=== PATIENT | female | born 1960 | race Two or more races ===

== ENCOUNTER 2021-10-06 14:02 | Outpatient (REF) | payer MEDICAID, SELFPAY ==
--- NOTE | ~2021-10-06 | MM_ITS ---
EXAMINATION: MM SCREENING DIGITAL BREAST TOMOSYNTHESIS, BILATERAL CLINICAL INFORMATION: Screening. Asymptomatic. The lifetime risk of breast cancer based on the Tyrer-Cuzick Model is 8.7%. COMPARISON: Mammography: January 16, 2019 and studies dating back to 04/30/2011 TECHNIQUE: Digital breast tomosynthesis is performed in both the craniocaudal and mediolateral oblique views along with computer-aided detection (CAD). Synthesized 2D images are generated from the tomosynthesis. FINDINGS: There are scattered areas of fibroglandular density (ACR BI-RADS breast composition Category b). There is stable parenchymal pattern of the right breast. Within the deep lateral aspect of the left breast on craniocaudal view only, there is a question of region of architectural distortion for which spot compression view is recommended. MM/MM tomosynthesis screening BI IMPRESSION: Question region of distortion, deep lateral aspect left breast with spot compression view. ASSESSMENT: BI-RADS 0: Incomplete - Need Additional Imaging Evaluation RECOMMENDATION: 1. Additional views of the left breast. 2. Targeted ultrasound if warranted after review of the additional views. 3. Radiology department staff will contact the patient for additional imaging.
== END 2021-10-06 14:03 | disposition home or self-care (01) ==
LOC: HO.MAMMO 14:02
PROVIDERS: PCP General Practice; Visit Provider General Practice
DX: Z12.31 Encounter for screening mammogram for malignant neoplasm of breast (principal)
CPT/HCPCS: 77063; 77067

== ENCOUNTER 2021-10-22 14:56 | Outpatient (REF) | payer MEDICAID, SELFPAY ==
--- NOTE | ~2021-10-22 | MM_ITS ---
EXAMINATION: MM DIAGNOSTIC DIGITAL BREAST TOMOSYNTHESIS, LEFT CLINICAL INFORMATION: Recall from screening for question of subtle architectural changes posterior left breast limited to CC view. COMPARISON: Mammography: 10/06/2021, 01/16/2019, 12/26/2017 TECHNIQUE: Digital breast tomosynthesis is performed. 2D images are generated from the tomosynthesis. The following views are obtained: Spot CC, rolled CC x2, standard ML. FINDINGS: There are scattered areas of fibroglandular density (ACR BI-RADS breast composition Category b). The additional views show no architectural abnormality. There is no mass or developing density. No significant changes from prior studies. Results are discussed with the patient at time of visit. MM/MM tomosynthesis added views L IMPRESSION: Additional views show no architectural abnormality or interval changes from prior exams. ASSESSMENT: BI-RADS 1: Negative RECOMMENDATION: Routine annual mammography screening. This patient's information was entered into a reminder system with a target due date for their next mammogram.
== END 2021-10-22 14:57 | disposition home or self-care (01) ==
LOC: HO.MAMMO 14:56
PROVIDERS: PCP General Practice; Visit Provider General Practice
DX: N64.89 Other specified disorders of breast (principal)
CPT/HCPCS: 77061; 77065

== ENCOUNTER 2022-01-27 12:14 | Outpatient (REF) | payer MEDICAID, SELFPAY ==
--- NOTE | ~2022-01-27 | XR_ITS ---
EXAMINATION: XR WRIST, LEFT CLINICAL INFORMATION: Effusion left wrist. COMPARISON: Radiographs left hand 01/16/2019 TECHNIQUE: Left wrist is imaged in 4 views. FINDINGS: Normal bony mineralization. No fracture, dislocation, or destructive process. Ulnar variance is neutral. The carpus shows no joint narrowing or erosive change or chondrocalcinosis. XR/XR wrist LT min 3V IMPRESSION: No fracture, destructive process, or arthropathy.
--- NOTE | ~2022-01-27 | XR_ITS ---
EXAMINATION: XR LUMBOSACRAL SPINE CLINICAL INFORMATION: Low back pain COMPARISON: CT abdomen and pelvis 04/11/2016 TECHNIQUE: 5 views of the lumbosacral spine. FINDINGS: There is transitional vertebrae at S1 with bilateral lumbarization. The lumbar vertebral bodies are normal in height and there is normal lumbar lordosis. No vertebral compression, spondylolisthesis, destructive process. There are multilevel degenerative disc changes with variable disc narrowing and endplate sclerosis and bulky bridging osteophytes. There is facet degeneration L4-S1. The SI joints are unremarkable. Gastric lap band again seen. XR/XR lumbar spine 2-3V IMPRESSION: -Transitional vertebrae at S1 with bilateral lumbarization. -Multilevel degenerative disc changes with small anterior and bulky lateral bridging osteophytes. -No vertebral compression, spondylolisthesis, destructive process.
== END 2022-01-27 12:15 | disposition home or self-care (01) ==
LOC: HO.XRAY 12:14
PROVIDERS: PCP General Practice; Visit Provider General Practice
DX: M54.50 Low back pain, unspecified (principal); M25.432 Effusion, left wrist
CPT/HCPCS: 72100; 73110

== ENCOUNTER 2022-02-10 15:11 | Outpatient (REF) | payer MEDICAID, SELFPAY ==
--- NOTE | ~2022-02-10 | XR_ITS ---
EXAMINATION: XR CHEST CLINICAL INFORMATION: Obesity COMPARISON: Previous chest x-rays most recent February 2018 TECHNIQUE: 2 views of the chest were obtained. FINDINGS: The cardiac silhouette is upper normal in size. There is a new left subclavian dual chamber pacemaker. The lung volumes are low. There are increased central lung markings probably related to low lung volumes. The lungs are otherwise clear. There is slight elevation of the right hemidiaphragm. There is no pleural effusion or pneumothorax. Bony structures are unremarkable. There is a gastric lap band. XR/XR chest 2V IMPRESSION: New left subclavian dual chamber pacemaker. Upper normal-size cardiac silhouette. Low lung volumes and elevated right hemidiaphragm.
[2022-02-10 15:46] LABS: VBG pCO2 58 mmHg; VBG pH 7.42 (7.32-7.43)
[2022-02-10 15:47] LABS: VBG Base Excess 12.3 mmol/L; VBG HCO3 38 mmol/L (22-26); VBG pO2 30 mmHg
[2022-02-10 15:48] LABS: Venous Blood Gas Refer to POC result
== END 2022-02-10 15:12 | disposition home or self-care (01) ==
LOC: HO.XRAY 15:11
PROVIDERS: PCP General Practice; Visit Provider Internal Medicine
DX: G47.33 Obstructive sleep apnea (adult) (pediatric) (principal); G47.34 Idiopathic sleep related nonobstructive alveolar hypoventilation; E66.01 Morbid (severe) obesity due to excess calories
CPT/HCPCS: 36415; 71046; 82803; 99202

== ENCOUNTER → 2022-03-03 09:11 | Outpatient (BNVA) | payer MEDICAID, SELFPAY | PROVIDERS: PCP General Practice; Visit Provider Internal Medicine | DX: I45.2 Bifascicular block (principal); I50.32 Chronic diastolic (congestive) heart failure; G47.33 Obstructive sleep apnea (adult) (pediatric); Z95.0 Presence of cardiac pacemaker | CPT/HCPCS: 93005; 99212 ==

== ENCOUNTER → 2022-04-01 09:41 | Outpatient (REF) | payer MEDICAID, SELFPAY ==
--- NOTE | 2022-04-01 09:46 | CA_ITS ---
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 Technically limited study despite use of contrast agent 2. Normal LV systolic function with mild LVH with impaired relaxation filling pattern with elevated filling pressures 3. Limited visualization of cardiac valves with normal cardiac valvular Doppler 4. Trivial pericardial effusion Findings Procedure Information Contrast agent, definity, is being given per protocol without apparent complications. Left Ventricle Normal left ventricular size and systolic function. There is mildly increased left ventricular wall thickness. The visually estimated ejection fraction is between 60-65%. Regional wall motion abnormalities can not be excluded due to suboptimal endocardial definition. Spectral Doppler is indicative of an impaired relaxation filling pattern. Elevated filling pressures. E/E prime ratio is >15, consistent with elevated filling pressures. Right Ventricle The right ventricle was not well visualized. Atria The left atrium was not well visualized. Interatrial shunt cannot be excluded. The right atrium was not well visualized. Aortic Valve The aortic valve was not well visualized. There is no aortic valve stenosis. There is no aortic valve regurgitation. Mitral Valve The mitral valve was not well visualized. There is no mitral valve regurgitation. There is no mitral valve stenosis. Pulmonic Valve The pulmonic valve was not well visualized. Tricuspid Valve Tricuspid regurgitation envelope is inadequate for calculation of right ventricular systolic pressure. Great Vessels All visible segments of the aorta are normal in size. The pulmonary artery was not well visualized. Venous The inferior vena cava was not well visualized. Pericardium/Pleural There is a trivial pericardial effusion. Prior Study Comparison no prior study in the last 5 years for comparison Measurements 2D Linear Measurements IVSd: 1.10 0.6-0.9/0.6-1.0 cm LVIDd: 5.06 3.9-5.3/4.2-5.9 cm LVIDd Index: 2.17 2.4-3.2/2.2-3.1 cm/m2 LVIDs: 3.52 2.0-3.6 cm LVPWd: 1.26 0.7-1.1 cm LA Diam: 3.30 2.7-3.8/3.0-4.0 cm LAIDs Index: 1.42 1.5-2.3 cm/m2 LV Mass: 290.12 67-162/88-224 g LV Mass Index: 124.52 43-95/49-115 g/m2 LVOT Diam: 2.00 3.0+(-)1.3 cm 2D Systolic Function EF 4C: 60.30 >55% EF 2C: 56.30 >55% EF BiP: 58.70 >55% Mitral Valve MV Pk E: 1.14 MV PK A: 1.26 MV Decel Time: 214.00 E/A: 0.90 E'Lateral: 8.16 E'Medial: 5.11 E/E' Med: 22.30 E/E' Lat: 14.00 PHT: 63.00 MVA PHT: 3.49 Decel [place]: 5.34 Aortic Valve AoV Pk Quinten: 1.66 AoV Mn Quinten: 1.26 AoV VTI: 0.35 AoV Pk Grad: 11.00 Aov Mn Grad: 7.00 CONNIE Cont.VTI: 1.75 LVOT LVOT Pk Quinten: 0.97 LVOT Mn Quinten: 0.68 LVOT VTI: 0.20 LVOT Pk Grad: 4.00 LVOT Mn Grad: 2.00 LVOT Diam: 2.00 LVOT Area: 3.14 Diastolic Function MV Pk E: 1.14 MV Pk A: 1.26 E/A: 0.90 E'Medial: 5.11 E/E' Med: 22.30 E' Laterial: 8.16 E/E' Lat: 14.00 Right Ventricle TAPSE (mm): 21.40 TVS' Quinten: 12.10 Tricuspid Valve TR Pk Quinten: 2.34 TR Pk Grad: 22.00 Great Vessels Aorta Sinus of Valsalva: 2.90 2.0-3.5 cm Ao Asc: 3.40 2.1-3.4 cm Pulmonary Valve PV Pk Quinten: 0.98 Peak PV Grad: 4.00 Updated in Other Vendor System with Status of Final Ho Pizano MD electronically signed on 04/02/2022 3:09:10 PM with status of Final
== END ==
LOC: HO.CARD 09:41
PROVIDERS: PCP General Practice; Visit Provider Internal Medicine
DX: I50.32 Chronic diastolic (congestive) heart failure (principal)
CPT/HCPCS: 93306; Q9957

== ENCOUNTER 2022-04-12 10:01 | Outpatient (REF) | payer MEDICAID, SELFPAY ==
--- NOTE | 2022-04-12 17:25 | PFT_ITS ---
The patient was unable to complete pulmonary function test maneuvers despite multiple attempts. Pulmonary function test was aborted. IMPRESSION: Aborted pulmonary function test. MD BIRD Jaimes/AMI / [id number]
== END 2022-04-12 10:02 | disposition home or self-care (01) ==
LOC: HO.RESP 10:01
PROVIDERS: PCP General Practice; Visit Provider Internal Medicine
DX: G47.33 Obstructive sleep apnea (adult) (pediatric) (principal); E66.01 Morbid (severe) obesity due to excess calories; Z95.0 Presence of cardiac pacemaker
CPT/HCPCS: 99212

== ENCOUNTER → 2022-04-19 12:29 | Outpatient (BNVA) | payer MEDICAID, SELFPAY | PROVIDERS: PCP General Practice; Visit Provider Internal Medicine | DX: I50.32 Chronic diastolic (congestive) heart failure (principal); G47.33 Obstructive sleep apnea (adult) (pediatric); E11.8 Type 2 diabetes mellitus with unspecified complications; E66.01 Morbid (severe) obesity due to excess calories; Z68.42 Body mass index [BMI] 45.0-49.9, adult; Z79.4 Long term (current) use of insulin; Z45.018 Encounter for adjustment and management of other part of cardiac pacemaker | CPT/HCPCS: 93280; 99212 ==

== ENCOUNTER 2022-08-20 10:18 | Outpatient (REF) | payer MEDICAID, SELFPAY ==
--- NOTE | ~2022-08-20 | XR_ITS ---
EXAMINATION: XR LUMBOSACRAL SPINE CLINICAL INFORMATION: Low back pain COMPARISON: X-ray lumbosacral spine January 2022 TECHNIQUE: Three views of the lumbosacral spine. FINDINGS: There is a transitional lumbosacral junction with 6 lumbar-type vertebral bodies noted as before. Multilevel degenerative disc changes noted with endplate osteophytes noted at all levels. There is no fracture or bone lesion. There is varying degrees of mild disc space narrowing, unchanged compared to prior. Arterial calcification noted throughout. XR/XR lumbar spine 2-3V IMPRESSION: Mild multilevel spondylosis of lumbosacral spine unchanged compared with prior x-ray January 2022. As noted previously, there is a transitional lumbosacral junction. If any spine intervention is considered, this needs to be considered when determining specific levels of intervention.
== END 2022-08-20 10:19 | disposition home or self-care (01) ==
LOC: HO.XRAY 10:18
PROVIDERS: PCP General Practice; Visit Provider General Practice
DX: M54.50 Low back pain, unspecified (principal)
CPT/HCPCS: 72100

== ENCOUNTER → 2022-09-01 13:58 | Outpatient (BNVA) | payer MEDICAID, SELFPAY | PROVIDERS: PCP General Practice; Visit Provider Internal Medicine | DX: E66.2 Morbid (severe) obesity with alveolar hypoventilation (principal); I11.0 Hypertensive heart disease with heart failure; I50.32 Chronic diastolic (congestive) heart failure; Z68.42 Body mass index [BMI] 45.0-49.9, adult; Z98.84 Bariatric surgery status; Z95.0 Presence of cardiac pacemaker; Z99.81 Dependence on supplemental oxygen | CPT/HCPCS: 99212 ==

== ENCOUNTER → 2022-10-06 10:02 | Outpatient (BNVA) | payer MEDICAID, SELFPAY | PROVIDERS: PCP General Practice; Visit Provider Anesthesiology | DX: M47.816 Spondylosis without myelopathy or radiculopathy, lumbar region (principal); E11.8 Type 2 diabetes mellitus with unspecified complications; E66.01 Morbid (severe) obesity due to excess calories; Z68.42 Body mass index [BMI] 45.0-49.9, adult | CPT/HCPCS: 99202 ==

== ENCOUNTER 2022-11-05 11:10 | Outpatient (REF) | payer MEDICAID, SELFPAY ==
--- NOTE | ~2022-11-05 | MM_ITS ---
EXAMINATION: MM SCREENING DIGITAL BREAST TOMOSYNTHESIS, BILATERAL CLINICAL INFORMATION: Screening. Asymptomatic. The lifetime risk of breast cancer based on the Tyrer-Cuzick Model is 6%. COMPARISON: Mammography: 10/22/2021, 10/06/2021, 01/16/2019, 12/26/2017 TECHNIQUE: Digital breast tomosynthesis is performed in both the craniocaudal and mediolateral oblique views along with computer-aided detection (CAD). Synthesized 2D images are generated from the tomosynthesis. Additional bilateral MLO views are provided. FINDINGS: There are scattered areas of fibroglandular density (ACR BI-RADS breast composition Category b). There are no significant masses, abnormal calcifications, or other abnormalities. No developing density or architectural abnormality. There are scattered bilateral round and rim calcifications. Pacemaker generator overlies and partly obscures posterior left axilla on MLO view. MM/MM tomosynthesis screening BI IMPRESSION: No mammographic evidence of malignancy. ASSESSMENT: BI-RADS 2: Benign RECOMMENDATION: Routine annual mammography screening. This patient's information was entered into a reminder system with a target due date for their next mammogram.
== END 2022-11-05 11:11 | disposition home or self-care (01) ==
LOC: HO.MAMMO 11:10
PROVIDERS: PCP General Practice; Visit Provider General Practice
DX: Z12.31 Encounter for screening mammogram for malignant neoplasm of breast (principal)
CPT/HCPCS: 77063; 77067

== ENCOUNTER → 2023-03-02 23:59 | Outpatient (BNV) | payer MEDICAID, SELFPAY ==
--- NOTE | 2023-03-06 10:40 | MHC.OFFVIS ---
Intake Intake Visit Reasons: Remote Device Check- [facility] Allergies No Known Allergies [No Known Allergies*] Allergy (Verified 10/06/22 11:01) [facility] Medical History (Updated 10/06/22 @ 11:42 by Sam Duggan MD) Anemia Chronic heart failure with preserved ejection fraction COVID-19 Essential hypertension Gout Hepatitis C Hypothyroidism Hypoventilation associated with obesity Morbid obesity Nocturnal hypoxia Nonimmune to hepatitis B virus AMMY (obstructive sleep apnea) Schizophrenia Type 2 diabetes mellitus with unspecified complications Surgical History History of adjustable gastric banding Status post cardiac pacemaker procedure Family History Mother Diabetes Hypertension Father Hyperlipidemia Social History Alcohol intake: never Patient Tobacco Use Status: Never used Tobacco Office Procedures Cardiac Device Check Cardiac Device Check Details: Date of service- 03/02/2023 ; Battery life >7 years; normal lead parameters; AP <1 %; 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 Overall normal device function. [id number] Cardiac Device Interrogation, pacemaker Procedure code (CPT) selection complete Assessment & Plan Assessment & Plan (1) Bifascicular bundle branch block: Code(s): I45.2 - Bifascicular block (2) Chronic heart failure with preserved ejection fraction: Code(s): I50.32 - Chronic diastolic (congestive) heart failure Coding Level of Care Code Procedure Only Diagnoses Bifascicular bundle branch block I45.2 Chronic heart failure with preserved ejection fraction I50.32 CPT Codes Cardiac Device Check - Cardiac Device 12: [id number] Cardiac Device Interrogation, pacemaker ([id number])
== END ==
PROVIDERS: PCP General Practice; Visit Provider Internal Medicine
DX: I45.2 Bifascicular block (principal); Z95.0 Presence of cardiac pacemaker; I50.32 Chronic diastolic (congestive) heart failure
CPT/HCPCS: 93294

== ENCOUNTER 2023-04-06 10:22 | Outpatient (AMB) | payer MEDICAID, SELFPAY ==
[2023-04-06 10:45] VITALS: BP 120/62; PULSE 99; O2SAT 95; BMI 45.3
--- NOTE | 2023-04-06 10:45 | MHC.OFFVIS ---
Intake Vital Signs 04/06/23 10:45 Height 5 ft 5 in Weight 272 lb BMI 45.3 BP 120/62 Blood Pressure Location Lt brachial Position Sitting Pulse 99 Pulse Source Pulse Oximeter Pulse Oximetry (%) 95 Oxygen Delivery Method Room Air Intake Visit Reasons: COPD Intake Note: pt is here for follow up and states she feels good, she is using oxygen t night and is asking if she should continue? Outside [employer] Sales Required: Yes Outside B2[employer] Sales Name: melissa Allergies No Known Allergies [No Known Allergies*] Allergy (Verified 04/06/23 11:04) Medication List - Last Reconciled 04/06/23 by Ulisses Noble MD aspirin 1 tab PO DAILY atorvastatin 40 mg PO BEDTIME blood sugar diagnostic (FreeStyle Lite Strips) As directed cholecalciferol (vitamin D3) 25 mcg PO DAILY doxepin 10 mg PO DAILY dulaglutide (Trulicity) 0.75 mg subcut QWEEK haloperidol decanoate (Haldol Decanoate) 50 mg IM Q4W hydroxyzine HCl mg IM insulin glargine (Lantus Solostar U-100 Insulin) units subcut insulin lispro (Humalog KwikPen (U-100) Insulin) subcut insulin lispro subcut lancets (Pure Comfort Safety Lancets) As directed levothyroxine 50 mcg PO DAILY lisinopril 2.5 mg PO DAILY lorazepam (Ativan) 1 mg PO BID PRN metformin ER 1,000 mg PO BID pantoprazole 20 mg PO DAILY quetiapine (Seroquel) 100 mg PO DAILY sennosides-docusate sodium 8.6-50 mg (Senna Plus) 1 tab PO BID Do you need a note to return to daycare/school/sports/work: No HPI COPD HPI Details 62 YEARS OLD VERY PLEASANT FEMALE WHO HAS MORBID OBESITY AND DIAGNOSIS OF OBSTRUCTIVE SLEEP APNEA/ HYPOVENTILATION SYNDROME, COMES FOR 6 MONTHS FOLLOW-UP. SHE COULD NOT USE CPAP, SO FOR TO OVERCOME NOCTURNAL HYPOXEMIA SHE USES O2 2 L/MINUTE. CLAIMS THAT SHE SLEEPS GOOD, AND DENIES ANY DAYTIME SLEEPINESS OR CONFUSIONAL ATTACKS. SHE IS TRYING TO LOSE WEIGHT SLOWLY. DENIES ANY COUGH WHEEZING OR SHORTNESS OF BREATH. SHE IS NOT ON ANY BRONCHODILATORS. SHE IS NONSMOKER. [facility] Medical History Hepatitis C Nocturnal hypoxia COVID-19 Gout Anemia Essential hypertension Type 2 diabetes mellitus with unspecified complications Nonimmune to hepatitis B virus Hypothyroidism Schizophrenia Chronic heart failure with preserved ejection fraction Hypoventilation associated with obesity AMMY (obstructive sleep apnea) Morbid obesity Surgical History Status post cardiac pacemaker procedure History of adjustable gastric banding Family History Mother Diabetes Hypertension Father Hyperlipidemia Social History Alcohol intake: never Patient Tobacco Use Status: Never used Tobacco Review of Systems Const All systems reviewed & are unremarkable except as noted in HPI and below Eyes Reports no additional complaints ENT Reports no additional complaints Card Denies chest pain, Denies irregular heart rhythm, Denies leg edema and Reports dyspnea on exertion (MILD) Resp Denies cough, Reports dyspnea on exertion (MILD) and Denies wheezing GI Reports no additional complaints Musc Reports no additional complaints Skin/Breast Reports system reviewed and no additional complaints, except as documented Neuro Reports no additional complaints Psych Reports anxiety Endo Reports other (BEING TREATED FOR DIABETES MELLITUS) Aller/Immun Denies wheezing Physical Exam Vital Signs: Last Vital Signs Pulse 99 04/06/23 10:45 BP 120/62 04/06/23 10:45 Pulse Ox 95 04/06/23 10:45 Oxygen Delivery Method Room Air 04/06/23 10:45 BMI result Body Mass Index 45.3 Const Other: Grossly obese with a round face. General: comfortable, no acute distress, alert and awake Orientation/consciousness: patient oriented x3 HEENT Other: Very narrow oropharynx, Mallampati class 4. Head: Yes normal to inspection General nose exam: No nasal polyps present and No nasal discharge present Face and sinus: Yes sinuses nontender Mouth: oropharynx normal Throat: Yes posterior oropharynx normal Eyes General: appearance normal, both eyes and all related structures Neck Neck: Yes normal visual inspection, Yes no lymphadenopathy, Yes trachea midline, Yes no JVD and Yes other (Neck circumference 18-1/2 inch) Thyroid: Thyroid normal Chest Chest palpation & inspection: normal inspection of the chest, normal palpation of entire chest wall and no tenderness Resp Other: PERCUSSION NOTE IS NOT PERCEPTIBLE DUE TO THICK CHEST WALL, BREATH SOUNDS ARE DISTANT ESPECIALLY OVER THE BASILAR AREAS, NO WHEEZES OR CREPITATIONS ARE HEARD. Cardio Palpation: normal PMI Rate: regular rate Rhythm: regular rhythm and other (Pacemaker battery in the left pectoral area) Heart sounds: no gallops and no murmurs GI Palpation (GI): Soft to palpation, nontender, No hepatosplenomegaly present, no masses and Other GI palpation findings present (Abdomen is grossly obese and protuberant) Auscultation: normal bowel sounds Back/Spine/Pelvis Thoracic/Lumbar Spine: thoracic and lumbar spine normal to inspection and thoraco-lumbar ROM limited Skin General skin exam: no rashes or lesions noted Neuro General: patient oriented x3, No gait normal (Non ambulatory), no focal motor deficits and other (Both lower extremities are weak and patient is non ambulatory) Cranial nerves: Yes CN's II-XII intact bilaterally Extrem General: Yes normal to inspection, Yes no calf tenderness, Yes edema (Both legs are tight with slight pitting edema) and Yes venous stasis dermatitis Psych Appearance: grossly normal Speech and movement: Normal speech and movement present Results Reviewed Results Reviewed: VENOUS BLOOD GAS STUDY. PH= 7.44 PCO2 49 PO2 27 THIS SHOWS ONLY VERY MILD DEGREE OFHYPERCARBIA ( SEC TO HYPOVENTILATION ) Assessment & Plan Assessment & Plan (1) Morbid obesity: Comment: BMI=46.4 She is of simple mind. Not able to follow instructions for diet or exercise. There is not much potential for any weight reduction, but this time she has lost about 8 LBs . Encouraged to keep on losing more weight. Code(s): E66.01 - Morbid (severe) obesity due to excess calories (2) AMMY (obstructive sleep apnea): Comment: Patient is known case of AMMY / Hypoventilation Syndrome ,but could not use the CPAP. She is on oxygen 2 L/minute during sleep. Code(s): G47.33 - Obstructive sleep apnea (adult) (pediatric) (3) Hypoventilation associated with obesity: Comment: CHRONIC OBESITY RELATED HYPOVENTILATION SYNDROME, ALONG WITH AMMY. SHE HAS CHRONIC HYPERCAPNIA AND HYPOXEMIA . LAST VENOUS BLOOD GAS SHOWED PCO2 58, AND PATTERN OF CHRONIC COMPENSATED RESPIRATORY FAILURE. VENOUS BG TEST REPEATED TODAY , SHOWS PCO 2 ONLY 49, WHICH IS DEFINITELY IMPROVED. . PATIENT ADVISED TO DO DEEP BREATHING EXERCISES, SHE IS EDUCATED TO DO DEEP BREATHING EXERCISES 10 EFFORTS EACH TIME AND 3 TIMES A DAY. Code(s): E66.2 - Morbid (severe) obesity with alveolar hypoventilation (4) Nocturnal hypoxia: Comment: PART OF UNTREATED OS/HYPOVENTILATION SYNDROME SHE HAS NOCTURNAL HYPOXEMIA. TREATED WITH O2 2 L/MINUTE AND SHE USES IT REGULARLY EVERY NIGHT. Code(s): G47.34 - Idiopathic sleep related nonobstructive alveolar hypoventilation Orders: Orders Venous Blood Gas Today E66.2 - Morbid (severe) obesity with alveolar hypoventilation, G47.33 - Obstructive sleep apnea (adult) (pediatric), G47.34 - Idiopathic sleep related nonobstructive alveolar hypoventilation Coding Level of Care Code Est Pt Level 4 (94828) Diagnoses Morbid obesity E66.01 AMMY (obstructive sleep apnea) G47.33 Hypoventilation associated with obesity E66.2 Nocturnal hypoxia G47.34
== END 2023-04-06 11:03 | disposition home or self-care (01) ==
PROVIDERS: PCP General Practice; Visit Provider Internal Medicine
DX: E66.2 Morbid (severe) obesity with alveolar hypoventilation (principal)
CPT/HCPCS: 99214

== ENCOUNTER 2023-04-06 10:22 | Outpatient (REF) | payer MEDICAID, SELFPAY ==
[2023-04-06 11:26] LABS: Venous Blood Gas Refer to POC result
[2023-04-06 11:28] LABS: VBG Base Excess 8.1 mmol/L; VBG HCO3 33 mmol/L (22-26); VBG pCO2 49 mmHg; VBG pH 7.44 (7.32-7.43); VBG pO2 27 mmHg
== END 2023-04-06 10:23 | disposition home or self-care (01) ==
LOC: HO.LAB 10:22
PROVIDERS: PCP General Practice; Visit Provider Internal Medicine
DX: J44.9 Chronic obstructive pulmonary disease, unspecified (principal); G47.33 Obstructive sleep apnea (adult) (pediatric); E66.2 Morbid (severe) obesity with alveolar hypoventilation; G47.34 Idiopathic sleep related nonobstructive alveolar hypoventilation; Z79.899 Other long term (current) drug therapy; Z79.4 Long term (current) use of insulin; Z99.81 Dependence on supplemental oxygen
CPT/HCPCS: 36415; 82803; 99212

== ENCOUNTER → 2023-06-01 23:59 | Outpatient (BNV) | payer MEDICAID, SELFPAY ==
--- NOTE | 2023-06-05 13:33 | MHC.OFFVIS ---
Intake Intake Visit Reasons: Remote Device Check- [facility] Allergies No Known Allergies [No Known Allergies*] Allergy (Verified 04/06/23 11:04) [facility] Medical History Hepatitis C Nocturnal hypoxia COVID-19 Gout Anemia Essential hypertension Type 2 diabetes mellitus with unspecified complications Nonimmune to hepatitis B virus Hypothyroidism Schizophrenia Chronic heart failure with preserved ejection fraction Hypoventilation associated with obesity AMMY (obstructive sleep apnea) Morbid obesity Surgical History Status post cardiac pacemaker procedure History of adjustable gastric banding Family History Mother Diabetes Hypertension Father Hyperlipidemia Social History Alcohol intake: never Patient Tobacco Use Status: Never used Tobacco Office Procedures Cardiac Device Check Cardiac Device Check Details: Date of service- 06/01/2023 ; Battery life >7 years; normal lead parameters; AP <1%; STAINED GLASS GLAZIER >99%; no significant arrhythmias. Overall normal device function. [id number] Cardiac Device Interrogation, pacemaker Procedure code (CPT) selection complete Assessment & Plan Assessment & Plan (1) Complete heart block: Code(s): I44.2 - Atrioventricular block, complete Coding Level of Care Code Procedure Only Diagnoses Complete heart block I44.2 CPT Codes Cardiac Device Check - Cardiac Device 12: [id number] Cardiac Device Interrogation, pacemaker ([id number])
== END ==
PROVIDERS: PCP General Practice; Visit Provider Internal Medicine
DX: I44.2 Atrioventricular block, complete (principal); Z95.0 Presence of cardiac pacemaker
CPT/HCPCS: 93294

== ENCOUNTER → 2023-08-31 23:59 | Outpatient (BNV) | payer MEDICAID, SELFPAY ==
--- NOTE | 2023-08-31 11:41 | A.OFFVIS_ITS ---
Intake Intake Visit Reasons: Remote Device Check- [facility] Allergies No Known Allergies [No Known Allergies*] Allergy (Verified 04/06/23 11:04) [facility] Medical History Hepatitis C Nocturnal hypoxia COVID-19 Gout Anemia Essential hypertension Type 2 diabetes mellitus with unspecified complications Nonimmune to hepatitis B virus Hypothyroidism Schizophrenia Chronic heart failure with preserved ejection fraction Hypoventilation associated with obesity AMMY (obstructive sleep apnea) Morbid obesity Surgical History Status post cardiac pacemaker procedure History of adjustable gastric banding Family History Mother Diabetes Hypertension Father Hyperlipidemia Social History Alcohol intake: never Patient Tobacco Use Status: Never used Tobacco Office Procedures Cardiac Device Check Cardiac Device Check Details: Date of service- 08/31/2023 ; Battery life >7 years; normal lead parameters; AP <1%; STRADDLE 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 Overall normal device function. [id number] Cardiac Device Interrogation, pacemaker Procedure code (CPT) selection complete Assessment & Plan Assessment & Plan (1) Complete heart block: Code(s): I44.2 - Atrioventricular block, complete Plan x Coding Level of Care Code Procedure Only Diagnoses Complete heart block I44.2 CPT Codes Cardiac Device Check - Cardiac Device 12: [id number] Cardiac Device Interrogation, pacemaker ([id number])
== END ==
PROVIDERS: PCP General Practice; Visit Provider Internal Medicine
DX: I44.2 Atrioventricular block, complete (principal); Z95.0 Presence of cardiac pacemaker
CPT/HCPCS: 93294

== ENCOUNTER 2023-09-15 14:18 | Outpatient (REF) | payer MEDICAID, SELFPAY ==
[2023-09-15 16:01] LABS: MANUAL DIFF FLAG NO
[2023-09-15 16:05] LABS: Basophils Percent Auto 0.5 % (0-2); Eosinophils Absolute Auto 0.2 X10*3/uL (0.0-0.4); Eosinophils Percent Auto 2.3 % (0-4); Hematocrit 40.4 % (37.0-47.0); Hemoglobin 12.7 g/dl (12.0-16.0); Imm Gran Abs Auto 0.01 X10*3/uL (0.00-0.03); Imm Gran Pct Auto 0.1 % (0.0-0.4); Lymphocytes Absolute Auto 2.8 X10*3/uL (1.2-4.9); Mean Corpuscular HGB Conc 31.4 g/dl (31.0-35.0); Mean Corpuscular Hemoglobin 28.3 pg (27.0-33.0); Mean Corpuscular Volume 90.2 fL (80.0-98.0); Mean Platelet Volume 11.8 fL (9.4-12.3); Monocytes Absolute Auto 0.4 X10*3/uL (0.1-1.2); Monocytes Percent Auto 5.3 % (2-11); Neutrophils Absolute Auto 4.1 x10*3/uL (2.0-8.3); Neutrophils Percent Auto 54.8 % (45-73); Platelet Count 225 X10*3/uL (160-400); Red Blood Count 4.48 X10*6/uL (4.20-5.50); Red Cell Distribution Width 14.4 % (11.0-16.0); White Blood Count 7.5 X10*3/uL (4.8-10.8)
[2023-09-15 16:47] LABS: Creatinine Urine 219.42 mg/dL; Microalbum/Creatinine Ratio Ur 17.7 ug/mg cr (<30)
[2023-09-15 16:48] LABS: Alanine Aminotransferase 25 U/L (0-31); Albumin Level 4.1 g/dL (3.5-5.0); Alkaline Phosphatase 61 U/L (39-117); Anion Gap 13 (12-20); Aspartate Amino Transferase 21 U/L (5-31); Bilirubin Total 0.3 mg/dL (0.0-1.0); Blood Urea Nitrogen 14 mg/dL (9-16); Calcium 9.5 mg/dL (8.4-10.2); Carbon Dioxide 30 mmol/L (22-29); Chloride 111 mmol/L (96-108); Cholesterol 129 mg/dL (<200); Estimated Glomerular Filt Rate > 60; Glucose Random 120 mg/dL (60-115); HDL Cholesterol 38 mg/dL (>40); LDL Cholesterol Calculated 62 mg/dL (<100); Potassium 3.5 mmol/L (3.3-5.1); Sodium 150 mmol/L (135-145); Total Protein 7.5 g/dL (6.5-8.0); Triglycerides 145 mg/dL (<150)
[2023-09-16 04:35] LABS: HIV AB/AG Nonreactive (Nonreactive); HIV Num 1 0.05 S/CO (0.00-0.99); ~HepC Num1 0.39 S/CO (0.00-0.79); ~Hepatitis C Antibody Nonreactive (Nonreactive)
== END 2023-09-15 14:19 | disposition home or self-care (01) ==
LOC: HO.HHCL 14:18
PROVIDERS: Visit Provider General Practice
DX: E11.65 Type 2 diabetes mellitus with hyperglycemia (principal); Z79.4 Long term (current) use of insulin
CPT/HCPCS: 36415; 80053; 80061; 82043; 82570; 85025; 86803; 87389

== ENCOUNTER 2023-10-03 10:49 | Outpatient (AMB) | payer MEDICAID, SELFPAY ==
--- NOTE | 2023-10-03 11:03 | MHC.OFFVIS ---
Intake Vital Signs 10/03/23 11:11 Height 5 ft 5 in Weight 214 lb 15.211 oz BMI 35.8 BP 118/64 Blood Pressure Location Rt brachial Position Sitting Pulse 97 Pulse Source Doppler Pulse Oximetry (%) 98 Oxygen Delivery Method Room Air Intake Visit Reasons: 6 mth f/u COPD Intake Note: follow up for Nocturnal Hypoxemia Reporting Consultant Required: Yes Reporting Consultant Name: Fouzia Browning Allergies No Known Allergies [No Known Allergies*] Allergy (Verified 10/03/23 11:25) Medication List - Last Reviewed 10/03/23 by THUY Louise aspirin 1 tab PO DAILY atorvastatin 40 mg PO BEDTIME blood sugar diagnostic (FreeStyle Lite Strips) As directed cholecalciferol (vitamin D3) 25 mcg PO DAILY doxepin 10 mg PO DAILY dulaglutide (Trulicity) 0.75 mg subcut QWEEK haloperidol decanoate (Haldol Decanoate) 50 mg IM Q4W hydroxyzine HCl mg IM insulin glargine (Lantus Solostar U-100 Insulin) units subcut insulin lispro (Humalog KwikPen (U-100) Insulin) subcut insulin lispro subcut lancets (Pure Comfort Safety Lancets) As directed levothyroxine 50 mcg PO DAILY lisinopril 2.5 mg PO DAILY lorazepam (Ativan) 1 mg PO BID PRN metformin ER 1,000 mg PO BID pantoprazole 20 mg PO DAILY quetiapine (Seroquel) 100 mg PO DAILY sennosides-docusate sodium 8.6-50 mg (Senna Plus) 1 tab PO BID Do you need a note to return to daycare/school/sports/work: No HPI 6 mth f/u COPD HPI Details Ysable is 62 years old grossly obese female, with diagnosis obesity related hypoventilation, sleep apnea and nocturnal hypoxemia. She has not been able to use the CPAP at night but does use O2 2 L/minute at night for her nocturnal hypoxemia. She claims to be feeling good and sleeps well. She denies symptoms of cough wheezing. Or shortness of breath She is trying to lose some weight and has lost significant amount in the last 6 months. She denies any daytime sleepiness . [facility] Medical History Hepatitis C Nocturnal hypoxia COVID-19 Gout Anemia Essential hypertension Type 2 diabetes mellitus with unspecified complications Nonimmune to hepatitis B virus Hypothyroidism Schizophrenia Chronic heart failure with preserved ejection fraction Hypoventilation associated with obesity AMMY (obstructive sleep apnea) Morbid obesity Surgical History Status post cardiac pacemaker procedure History of adjustable gastric banding Family History Mother Diabetes Hypertension Father Hyperlipidemia Social History Alcohol intake: never Patient Tobacco Use Status: Never used Tobacco Review of Systems Const All systems reviewed & are unremarkable except as noted in HPI and below Eyes Reports no additional complaints ENT Reports no additional complaints Card Denies chest pain, Denies irregular heart rhythm, Denies leg edema and Reports dyspnea on exertion (MILD) Resp Denies cough, Reports dyspnea on exertion (MILD) and Denies wheezing GI Reports no additional complaints Musc Reports no additional complaints Skin/Breast Reports system reviewed and no additional complaints, except as documented Neuro Reports no additional complaints Psych Reports anxiety Endo Reports other (BEING TREATED FOR DIABETES MELLITUS) Aller/Immun Denies wheezing Physical Exam Const Other: Grossly obese with a round face. General: comfortable, no acute distress, alert and awake Orientation/consciousness: patient oriented x3 HEENT Other: Very narrow oropharynx, Mallampati class 4. Head: Yes normal to inspection General nose exam: No nasal polyps present and No nasal discharge present Face and sinus: Yes sinuses nontender Mouth: oropharynx normal Throat: Yes posterior oropharynx normal Eyes General: appearance normal, both eyes and all related structures Neck Neck: Yes normal visual inspection, Yes no lymphadenopathy, Yes trachea midline, Yes no JVD and Yes other (Neck circumference 18-1/2 inch) Thyroid: Thyroid normal Chest Chest palpation & inspection: normal inspection of the chest, normal palpation of entire chest wall and no tenderness Resp Other: PERCUSSION NOTE IS RESONANT , BREATH SOUNDS ARE DISTANT ESPECIALLY OVER THE BASILAR AREAS, NO WHEEZES OR CREPITATIONS ARE HEARD. Cardio Palpation: normal PMI Rate: regular rate Rhythm: regular rhythm and other (Pacemaker battery in the left pectoral area) Heart sounds: no gallops and no murmurs GI Palpation (GI): Soft to palpation, nontender, No hepatosplenomegaly present, no masses and Other GI palpation findings present (Abdomen is grossly obese and protuberant) Auscultation: normal bowel sounds Back/Spine/Pelvis Thoracic/Lumbar Spine: thoracic and lumbar spine normal to inspection and thoraco-lumbar ROM limited Skin General skin exam: no rashes or lesions noted Neuro General: patient oriented x3, No gait normal (Non ambulatory), no focal motor deficits and other (Both lower extremities are weak and patient is non ambulatory) Cranial nerves: Yes CN's II-XII intact bilaterally Extrem General: Yes normal to inspection, Yes no calf tenderness, Yes edema (Both legs are tight with slight pitting edema) and Yes venous stasis dermatitis Psych Appearance: grossly normal Speech and movement: Normal speech and movement present Assessment & Plan Assessment & Plan (1) Nocturnal hypoxia: Comment: PART OF UNTREATED AMMY/HYPOVENTILATION SYNDROME SHE HAS NOCTURNAL HYPOXEMIA. TREATED WITH O2 2 L/MINUTE AND SHE USES IT REGULARLY EVERY NIGHT. Code(s): G47.34 - Idiopathic sleep related nonobstructive alveolar hypoventilation Plan: ADVISED TO CONTINUE USING O2 2 L/MINUTE AT NIGHT (2) Hypoventilation associated with obesity: Comment: CHRONIC OBESITY RELATED HYPOVENTILATION SYNDROME, ALONG WITH AMMY. SHE HAS CHRONIC HYPERCAPNIA AND HYPOXEMIA . LAST VENOUS BLOOD GAS SHOWED PCO2 49 , IMPROVED FROM BEFORE. Code(s): E66.2 - Morbid (severe) obesity with alveolar hypoventilation Plan: PATIENT ADVISED TO DO DEEP BREATHING EXERCISES, SHE HAS BEEN EDUCATED TO DO DEEP BREATHING EXERCISES 10 EFFORTS EACH TIME AND 3 TIMES A DAY. (3) AMMY (obstructive sleep apnea): Comment: Patient is known case of AMMY / Hypoventilation Syndrome ,but could not use the CPAP. Code(s): G47.33 - Obstructive sleep apnea (adult) (pediatric) Plan: CONTINUE TO USE O2 2 L/MINUTE AT NIGHTTIME (4) Morbid obesity: Comment: BMI=46.4 She is of simple mind. But has been trying to lose weight and amazingly she has lost significant weight this time NMI down to 35.8. Code(s): E66.01 - Morbid (severe) obesity due to excess calories Plan: Commended for losing weight. And encouraged to keep on watching her diet and walk daily to lose morphine. Coding Level of Care Code Est Pt Level 3 (43156) Diagnoses Nocturnal hypoxia G47.34 Hypoventilation associated with obesity E66.2 AMMY (obstructive sleep apnea) G47.33 Morbid obesity E66.01
[2023-10-03 11:11] VITALS: BP 118/64; PULSE 97; O2SAT 98; BMI 35.8
== END 2023-10-03 11:25 | disposition home or self-care (01) ==
PROVIDERS: PCP General Practice; Visit Provider Internal Medicine
DX: G47.33 Obstructive sleep apnea (adult) (pediatric) (principal); G47.34 Idiopathic sleep related nonobstructive alveolar hypoventilation
CPT/HCPCS: 99213

== ENCOUNTER → 2023-10-03 10:59 | Outpatient (BNVA) | payer MEDICAID, SELFPAY | PROVIDERS: PCP General Practice; Visit Provider Internal Medicine | DX: G47.34 Idiopathic sleep related nonobstructive alveolar hypoventilation (principal); G47.33 Obstructive sleep apnea (adult) (pediatric); E66.01 Morbid (severe) obesity due to excess calories | CPT/HCPCS: 99212 ==

== ENCOUNTER 2023-10-19 10:52 | Outpatient (REF) | payer MEDICAID, SELFPAY ==
--- NOTE | ~2023-10-19 | XR_ITS ---
EXAMINATION: XR LUMBOSACRAL SPINE WITH OBLIQUES CLINICAL INFORMATION: Lumbar spondylosis, without myelopathy or radiculopathy. COMPARISON: Lumbar spine radiographs dated 08/20/2022. TECHNIQUE: AP, both oblique, and lateral views of the lumbar spine. Lateral view of the lumbosacral junction. FINDINGS: Vertebral body heights and alignment are normal. There is marked disc space narrowing at L4-L5. The remaining disc spaces are relatively well-maintained. No acute fracture or spondylolisthesis is seen. There is multi-level lower thoracic and lumbar endplate arthropathy. The posterior elements are intact. No spondylolysis defect seen on the oblique views. There is facet arthropathy, most pronounced at L4-L5 and L5-S1. The paravertebral soft tissues are unremarkable. A gastric band port is noted. XR/XR lumbar spine 4V min IMPRESSION: 1. There is marked degenerative disc disease at L4-L5. 2. There is multi-level lower thoracic and lumbar endplate arthropathy. 3. No spondylolysis defect is seen. 4. There is facet arthropathy, most pronounced at L4-L5 and L5-S1.
--- NOTE | ~2023-10-19 | XR_ITS ---
EXAMINATION: XR PELVIS CLINICAL INFORMATION: Sacroiliitis. COMPARISON: CT lumbosacral spine dated 04/11/2016. TECHNIQUE: AP and lateral views of the pelvis are submitted. FINDINGS: No fracture. Hip joint spaces are well-maintained. There is mild peripheral osteophyte formation of the bilateral acetabular roofs. The femoral heads are smooth. Alignment is anatomic. Sacroiliac joints and pubic symphysis are normal. There is a small left pelvic phlebolith. No abnormal soft tissue calcifications. There is moderately severe disc space narrowing at L4-L5. XR/XR pelvis 1-2V IMPRESSION: 1. There is mild degenerative change of the bilateral hips. 2. The sacroiliac joints are symmetric and well-maintained. 3. There is moderately severe degenerative disc disease at L4-L5.
== END 2023-10-19 10:53 | disposition home or self-care (01) ==
LOC: HO.XRAY 10:52
PROVIDERS: PCP General Practice; Visit Provider Anesthesiology
DX: M47.816 Spondylosis without myelopathy or radiculopathy, lumbar region (principal); M53.3 Sacrococcygeal disorders, not elsewhere classified; M46.1 Sacroiliitis, not elsewhere classified
CPT/HCPCS: 72110; 72170; 99212

== ENCOUNTER 2023-10-19 10:52 | Outpatient (AMB) | payer MEDICAID, SELFPAY ==
--- NOTE | 2023-10-19 10:58 | A.OFFVIS_ITS ---
Intake Vital Signs 10/19/23 11:05 Height 5 ft 5 in Weight 218 lb 4 oz BMI 36.3 BP 146/66 H Blood Pressure Location Lt brachial Position Sitting Respiration 14 Pulse 98 Pulse Source Pulse Oximeter Pulse Oximetry (%) 99 Oxygen Delivery Method Room Air Intake Visit Reasons: chronic low back pain w/spondylosis Intake Note: Patient comes in for chronic low back pain. Reports pain 02/24. Allergies No Known Allergies [No Known Allergies*] Allergy (Verified 10/19/23 11:04) HPI HPI Comments History of Present Illness Details Ysabel is 61 years old Malay-speaking female who presents in my office today complains on pain in the lumbar spine. She was in in this office1 year ago with complains on clicking sensation in her back. She did not complain on any pain. Now she came to me and she said for the past 6 months she was suffering from severe pain in the back. On physical exam today diagnosis of spondylosis of lumbar spine without myelopathy and radiculopathy was suspected, also sacroiliac joint pain based on physical exam can not be excluded. I will send this patient for lumbar spine x-ray and pelvis x-ray. I also will send her for physical therapy. She went for physical therapy but stated that she can not afford physical therapy. She is Medicare patient and I think physical therapy at [facility] [place] [facility] will be good for this patient. [facility] Medical History Hepatitis C Nocturnal hypoxia COVID-19 Gout Anemia Essential hypertension Type 2 diabetes mellitus with unspecified complications Nonimmune to hepatitis B virus Hypothyroidism Schizophrenia Chronic heart failure with preserved ejection fraction Hypoventilation associated with obesity AMMY (obstructive sleep apnea) Morbid obesity Surgical History Status post cardiac pacemaker procedure History of adjustable gastric banding Family History Mother Diabetes Hypertension Father Hyperlipidemia Social History Alcohol intake: never Patient Tobacco Use Status: Never used Tobacco Review of Systems Const All systems reviewed & are unremarkable except as noted in HPI and below ENT Reports Normal hearing present Neuro Reports Normal hearing present, Denies Abnormal speech present, Denies confusion and Denies Sensory deficit (Neuro) Psych Denies confusion Physical Exam Vital Signs: Last Vital Signs Pulse 98 10/19/23 11:05 Resp 14 10/19/23 11:05 BP 146/66 H 10/19/23 11:05 Pulse Ox 99 10/19/23 11:05 Oxygen Delivery Method Room Air 10/19/23 11:05 BMI result Body Mass Index 36.3 Const General: no acute distress; No confusion Nutritional Appearance: obese morbidly obese Orientation/consciousness: patient oriented x3 and No confusion Eyes General: appearance normal, both eyes and all related structures Pupils: Equal, round and reactive pupils present EOM: EOMs intact bilaterally Neck Neck: Yes full ROM Chest Chest palpation & inspection: normal inspection of the chest Resp Effort & Inspection: normal respiratory effort, able to speak in complete sentences, normal respiratory pattern, no audible wheezes and no cough Cardio Jugular venous distension: no JVD GI Other: Severe morbid obesity, abdomen these increased in size due to intra-abdominal and subcutaneous fat. Possibility of ascites could not be excluded. Back/Spine/Pelvis Other: Significant tenderness on palpation on paraspinal and spinal region of thoracic or lumbar spine. Loading test is positive bilaterally. Arcadio test is positive bilaterally. Gaenslen test is positive bilaterally. Stinchfield test is positive bilaterally. Neuro General: patient oriented x3, gait normal and No confusion Cranial nerves: Yes CN's II-XII intact bilaterally, Yes Equal, round and reactive pupils present, Yes Normal hearing present and Yes Ability to bilaterally elevate shoulders present Speech: No Abnormal speech present Gait exam (Neuro): Normal gait present Motor exam (neuro): 5/5 motor strength present throughout Sensory Exam: No Sensory deficit (Neuro) Extrem General: No pedal edema Psych Speech and movement: Normal speech and movement present Affect: normal affect Attitude: cooperative Thought process: Normal thought process present Thought content: Normal thought content present Insight: Good insight present (Psych) Judgement: Good judgement present (Psych) Assessment & Plan Assessment & Plan (1) Spondylosis of lumbar region without myelopathy or radiculopathy: Code(s): M47.816 - Spondylosis without myelopathy or radiculopathy, lumbar region (2) Spondylosis of lumbar spine: Code(s): M47.816 - Spondylosis without myelopathy or radiculopathy, lumbar region (3) Sacroiliac joint dysfunction of both sides: Code(s): M53.3 - Sacrococcygeal disorders, not elsewhere classified (4) Sacroiliitis: Code(s): M46.1 - Sacroiliitis, not elsewhere classified Plan I will start evaluation of this patient with bilateral sacroiliac joint injection. This procedure will be scheduled diagnostic without sedation. I also will send her for pelvis x-ray and lumbar spine x-ray. I will send her for physical therapy hopefully she will be able to afford physical therapy in our physical therapy program. Orders: Orders XR lumbar spine 4V min Today M47.816 - Spondylosis without myelopathy or radiculopathy, lumbar region PT Evaluation and Treatment Today M46.1 - Sacroiliitis, not elsewhere classified, M47.816 - Spondylosis without myelopathy or radiculopathy, lumbar region, M53.3 - Sacrococcygeal disorders, not elsewhere classified Patient Instructions: I here by testify that I spent 38 minutes in conversation with this patient as well as planning her care, and organizing this note. world renowned chef and restaurant owner Amita from [employer], [phone] was helping us to keep this conversation. Coding Level of Care Code Est Pt Level 4 (70451) Diagnoses Spondylosis of lumbar region without myelopathy or radiculopathy M47.816 Spondylosis of lumbar spine M47.816 Sacroiliac joint dysfunction of both sides M53.3 Sacroiliitis M46.1
[2023-10-19 11:05] VITALS: BP 146/66; PULSE 98; RESP 14; O2SAT 99; BMI 36.3
== END 2023-10-19 11:23 | disposition home or self-care (01) ==
PROVIDERS: PCP General Practice; Referring Provider General Practice; Visit Provider Anesthesiology
DX: M47.816 Spondylosis without myelopathy or radiculopathy, lumbar region (principal); M53.3 Sacrococcygeal disorders, not elsewhere classified; M46.1 Sacroiliitis, not elsewhere classified
CPT/HCPCS: 99214

== ENCOUNTER 2023-11-01 06:05 | Outpatient (REF) | payer MEDICAID, SELFPAY | END 2023-11-01 06:06 | disposition home or self-care (01) | LOC: CF 06:05 | PROVIDERS: Visit Provider Anesthesiology | DX: Z13.89 Encounter for screening for other disorder (principal) ==

== ENCOUNTER 2023-11-15 11:41 | Outpatient (REF) | payer MEDICAID, SELFPAY ==
[2023-11-15 14:10] LABS: Anion Gap 12 (12-20); Blood Urea Nitrogen 15 mg/dL (9-16); Calcium 10.1 mg/dL (8.4-10.2); Carbon Dioxide 31 mmol/L (22-29); Chloride 111 mmol/L (96-108); Estimated Glomerular Filt Rate > 60; Glucose Random 125 mg/dL (60-115); Sodium 150 mmol/L (135-145)
[2023-11-15 14:13] LABS: TSH reflex Free T4 0.82 uIU/mL (0.32-4.0)
== END 2023-11-15 11:42 | disposition home or self-care (01) ==
LOC: HO.HHCL 11:41
PROVIDERS: Visit Provider Internal Medicine
DX: E03.9 Hypothyroidism, unspecified (principal); E11.65 Type 2 diabetes mellitus with hyperglycemia; Z79.4 Long term (current) use of insulin
CPT/HCPCS: 36415; 80048; 84443

== ENCOUNTER 2023-11-29 06:50 | Outpatient (REF) | payer MEDICAID, SELFPAY ==
--- NOTE | ~2023-11-29 | FL_ITS ---
EXAMINATION: XR FLUOROSCOPY WITH IMAGES CLINICAL INFORMATION: Sacrococcygeal disorders. COMPARISON: None available. TECHNIQUE: Fluoroscopy Supervised By: Dr. Sma Duggan. Fluoroscopy Time: 0.3 minutes. Cumulative Dose: 9.78 mGy. DAP: 0.169 Gycm2. Images: 2. FINDINGS: Intraoperative fluoroscopy and spot films were performed during a procedure in the OR. Spinal needles are present overlying the each SI joint with contrast seen surrounding the tips. Please see Dr. Sam Duggan's report for complete details. FL/FL guidance in treatment room IMPRESSION: Intraoperative fluoroscopy and spot films were obtained. Please see Dr. Sam Duggan's report for complete details.
== END 2023-11-29 06:51 | disposition home or self-care (01) ==
LOC: CF 06:50
PROVIDERS: PCP General Practice; Visit Provider Anesthesiology
DX: M53.3 Sacrococcygeal disorders, not elsewhere classified (principal); M47.816 Spondylosis without myelopathy or radiculopathy, lumbar region; M46.1 Sacroiliitis, not elsewhere classified
CPT/HCPCS: 27096; J2795; Q9967

== ENCOUNTER 2023-11-29 08:30 | Outpatient (AMB) | payer MEDICAID, SELFPAY ==
[2023-11-29 08:40] VITALS: BP 136/70; PULSE 103; RESP 18; O2SAT 97; BMI 36.3
--- NOTE | 2023-11-29 08:40 | A.OFFVIS_ITS ---
Vital Signs 11/29/23 08:40 11/29/23 09:31 Height 5 ft 5 in Weight 218 lb BMI 36.3 BP 136/70 130/86 Blood Pressure Location Lt brachial Lt brachial Position Sitting Sitting Respiration 18 16 Pulse 103 H 99 Pulse Source Pulse Oximeter Pulse Oximeter Pulse Oximetry (%) 97 98 Oxygen Delivery Method Room Air Room Air Comment Pre-Op Post-Op Intake Visit Reasons: BILATERAL DIAGNOSTIC SIJ INJECTIONS Allergies No Known Allergies [No Known Allergies*] Allergy (Verified 10/19/23 11:04) PFSH Medical History Hepatitis C Nocturnal hypoxia COVID-19 Gout Anemia Essential hypertension Type 2 diabetes mellitus with unspecified complications Nonimmune to hepatitis B virus Hypothyroidism Schizophrenia Chronic heart failure with preserved ejection fraction Hypoventilation associated with obesity AMMY (obstructive sleep apnea) Morbid obesity Surgical History Status post cardiac pacemaker procedure History of adjustable gastric banding Family History Mother Diabetes Hypertension Father Hyperlipidemia Social History Alcohol intake: never Patient Tobacco Use Status: Never used Tobacco Physical Exam Vital Signs: Last Vital Signs Pulse 99 11/29/23 09:31 Resp 16 11/29/23 09:31 BP 130/86 11/29/23 09:31 Pulse Ox 98 11/29/23 09:31 Oxygen Delivery Method Room Air 11/29/23 09:31 BMI result Body Mass Index 36.3 Assessment & Plan Assessment & Plan (1) Spondylosis of lumbar region without myelopathy or radiculopathy: Code(s): M47.816 - Spondylosis without myelopathy or radiculopathy, lumbar region Category: Medical (2) Spondylosis of lumbar spine: Code(s): M47.816 - Spondylosis without myelopathy or radiculopathy, lumbar region Category: Medical (3) Sacroiliac joint dysfunction of both sides: Code(s): M53.3 - Sacrococcygeal disorders, not elsewhere classified Category: Medical (4) Sacroiliitis: Code(s): M46.1 - Sacroiliitis, not elsewhere classified Category: Medical Plan: Bilateral diagnostic sacroiliac joint injection. Informed consent was explained thoroughly to the patient. All questions about benefits and risks for the procedure were answered. Patient came to the operating room and was positioned prone on the operating table with the pillow under the pelvis. Time out was performed delineating name and of the patient, allergies and the nature of the procedure. The lower back and buttocks of the patient were prepped with ChloraPrep prepped and draped with sterile utility towels. C-arm was brought over the operating field and sq picture of patient's pelvis was demonstrated on the screen. For the right joint tilting C-arm contralateral to the site of the joint the most posterior portion of the joints was superimposed with anterior silhouette of the joint. Skin was injected in the projection of the joint slightly medial to the location of the joint with 25 gauge 1/2 inch needle using local lidocaine 2% .After that 22 gauge 3 and 1/2 inch needle was driven to the right joint in tunnel vision fashion. When needle entered the joint capsule injection of the contrast was performed demonstrating intra-articular and minimally periarticular spread of the contrast. After that 4.5 cc. of ropivacaine 0.5% was injected into the joint. Upon completion of the injections the needle was removed. The attention was addressed to the left-sided joint. Left-sided joint appear to be in normal anatomical structure, the procedure was performed for the left joint in mirroring fashion. The needle was removed. Sterile dressing was applied. Upon completion of the injection patient was taken outside of the operating room to the recovery room where recovered uneventfully. Pain diary was carefully explained to the patient at the end of the procedure. american sign language interpreter from [employer] was used to explain the pain diary Plan I will start evaluation of this patient with bilateral sacroiliac joint i njection. This procedure will be scheduled diagnostic without sedation. I also will send her for pelvis x-ray and lumbar spine x-ray. I will send her for physical therapy hopefully she will be able to afford physical therapy in our physical therapy program. Orders: Orders FL guidance in treatment room Today M53.3 - Sacrococcygeal disorders, not elsewhere classified Coding Level of Care Code Procedure Only Diagnoses Spondylosis of lumbar region without myelopathy or radiculopathy M47.816 Spondylosis of lumbar spine M47.816 Sacroiliac joint dysfunction of both sides M53.3 Sacroiliitis M46.1
[2023-11-29 09:31] VITALS: BP 130/86; PULSE 99; RESP 16; O2SAT 98
== END 2023-11-29 09:47 | disposition home or self-care (01) ==
LOC: HO.PMCPRC 08:30
PROVIDERS: PCP General Practice; Visit Provider Anesthesiology
DX: M53.3 Sacrococcygeal disorders, not elsewhere classified (principal); M46.1 Sacroiliitis, not elsewhere classified
CPT/HCPCS: 27096

== ENCOUNTER → 2023-11-30 23:59 | Outpatient (BNV) | payer MEDICAID, SELFPAY ==
--- NOTE | 2023-12-01 15:55 | A.OFFVIS_ITS ---
Intake Visit Reasons: Remote device check- [facility] Allergies No Known Allergies [No Known Allergies*] Allergy (Verified 12/01/23 13:42) [facility] Medical History Hepatitis C Nocturnal hypoxia COVID-19 Gout Anemia Essential hypertension Type 2 diabetes mellitus with unspecified complications Nonimmune to hepatitis B virus Hypothyroidism Schizophrenia Chronic heart failure with preserved ejection fraction Hypoventilation associated with obesity AMMY (obstructive sleep apnea) Morbid obesity Surgical History Status post cardiac pacemaker procedure History of adjustable gastric banding Family History Mother Diabetes Hypertension Father Hyperlipidemia Social History Alcohol intake: never Patient Tobacco Use Status: Never used Tobacco Office Procedures Cardiac Device Check Cardiac Device Check Details: Date of service- 11/30/2023 ; Battery life >7 years; normal lead parameters; AP ,<1%; [employer] >99%; one high ventricular rate episode, very brief. Overall normal device function. [id number] Cardiac Device Interrogation, pacemaker Procedure code (CPT) selection complete Assessment & Plan Assessment & Plan (1) Complete heart block: Code(s): I44.2 - Atrioventricular block, complete Category: Medical Plan x Coding Level of Care Code Procedure Only Diagnoses Complete heart block I44.2 CPT Codes Cardiac Device Check - Cardiac Device 12: [id number] Cardiac Device Interrogation, pacemaker ([id number])
== END ==
PROVIDERS: PCP General Practice; Visit Provider Internal Medicine
DX: I44.2 Atrioventricular block, complete (principal); Z95.0 Presence of cardiac pacemaker
CPT/HCPCS: 93294

== ENCOUNTER 2023-12-01 13:31 | Outpatient (AMB) | payer MEDICAID, SELFPAY ==
--- NOTE | 2023-12-01 13:37 | A.OFFVIS_ITS ---
Vital Signs 12/01/23 13:43 Height 5 ft 5 in Weight 209 lb 6 oz BMI 34.8 BP 136/90 H Blood Pressure Location Lt brachial Position Sitting Respiration 12 Pulse 87 Pulse Source Pulse Oximeter Pulse Oximetry (%) 93 Oxygen Delivery Method Room Air Intake Visit Reasons: BILATERAL DIAGNOSTIC SIJ INJECTIONS Intake Note: Patient comes in for post-op appointment. Reports pain 01/24. Allergies No Known Allergies [No Known Allergies*] Allergy (Verified 12/01/23 13:42) HPI Comments Details: Ysabel is 61 years old Chinese-speaking female who presents in my office today complains on pain in the lumbar spine. She is here today after diagnostic sacroiliac joint injection. She unfortunately went to sleep and spent 2 hours sleeping after the procedure. However when she woke up her pain was back to the pre-injection level 01/24. I do not think sacroiliac joint are: her pain generators. She went for x-ray of the pelvis and x-ray of the lumbar spine. On the pelvic x-ray there are no sacroiliac joint changes. However on x-ray of the lumbar spine there are significant arthritic changes in the lumbar spine. I offered today patient to go for diagnostic bilateral L3 , L4, dorsal ramus L5 bilateral medial branch block. She agreed to go for the procedure. She promised this time that she will not be sleeping after the procedure. Prior: She was in in this office1 year ago with complains on clicking sensation in her back. She did not complain on any pain. Now she came to me and she said for the past 6 months she was suffering from severe pain in the back. On physical exam today diagnosis of spondylosis of lumbar spine without myelopathy and radiculopathy was suspected, also sacroiliac joint pain based on physical exam can not be excluded. I will send this patient for lumbar spine x-ray and pelvis x-ray. I also will send her for physical therapy. She went for physical therapy but stated that she can not afford physical therapy. She is Medicare patient and I think physical therapy at [facility] will be good for this patient. [facility] Medical History Hepatitis C Nocturnal hypoxia COVID-19 Gout Anemia Essential hypertension Type 2 diabetes mellitus with unspecified complications Nonimmune to hepatitis B virus Hypothyroidism Schizophrenia Chronic heart failure with preserved ejection fraction Hypoventilation associated with obesity AMMY (obstructive sleep apnea) Morbid obesity Surgical History Status post cardiac pacemaker procedure History of adjustable gastric banding Family History Mother Diabetes Hypertension Father Hyperlipidemia Social History Alcohol intake: never Patient Tobacco Use Status: Never used Tobacco Review of Systems Const All systems reviewed & are unremarkable except as noted in HPI and below ENT Reports Normal hearing present Neuro Reports Normal hearing present, Denies Abnormal speech present, Denies confusion and Denies Sensory deficit (Neuro) Psych Denies confusion Physical Exam Vital Signs: Last Vital Signs Pulse 87 12/01/23 13:43 Resp 12 12/01/23 13:43 BP 136/90 H 12/01/23 13:43 Pulse Ox 93 12/01/23 13:43 Oxygen Delivery Method Room Air 12/01/23 13:43 BMI result Body Mass Index 34.8 Const General: no acute distress; No confusion Nutritional Appearance: obese morbidly obese Orientation/consciousness: patient oriented x3 and No confusion Eyes General: appearance normal, both eyes and all related structures Pupils: Equal, round and reactive pupils present EOM: EOMs intact bilaterally Neck Neck: Yes full ROM Chest Chest palpation & inspection: normal inspection of the chest Resp Effort & Inspection: normal respiratory effort, able to speak in complete sentences, normal respiratory pattern, no audible wheezes and no cough Cardio Jugular venous distension: no JVD GI Other: Severe morbid obesity, abdomen these increased in size due to intra-abdominal and subcutaneous fat. Possibility of ascites could not be excluded. Back/Spine/Pelvis Other: Significant tenderness on palpation on paraspinal and spinal region of thoracic or lumbar spine. Loading test is positive bilaterally. Arcadio test is positive bilaterally. Gaenslen test is positive bilaterally. Stinchfield test is positive bilaterally. Neuro General: patient oriented x3, gait normal and No confusion Cranial nerves: Yes CN's II-XII intact bilaterally, Yes Equal, round and reactive pupils present, Yes Normal hearing present and Yes Ability to bilaterally elevate shoulders present Speech: No Abnormal speech present Gait exam (Neuro): Normal gait present Motor exam (neuro): 5/5 motor strength present throughout Sensory Exam: No Sensory deficit (Neuro) Extrem General: No pedal edema Psych Speech and movement: Normal speech and movement present Affect: normal affect Attitude: cooperative Thought process: Normal thought process present Thought content: Normal thought content present Insight: Good insight present (Psych) Judgement: Good judgement present (Psych) Results Reviewed Results Reviewed: X-ray pelvis: No fracture. Hip joint spaces are well-maintained. There is mild peripheral osteophyte formation of the bilateral acetabular roofs. The femoral heads are smooth. Alignment is anatomic. Sacroiliac joints and pubic symphysis are normal. There is a small left pelvic phlebolith. No abnormal soft tissue calcifications. There is moderately severe disc space narrowing at L4-L5. XR/XR pelvis 1-2V IMPRESSION: 1. There is mild degenerative change of the bilateral hips. 2. The sacroiliac joints are symmetric and well-maintained. 3. There is moderately severe degenerative disc disease at L4-L5. XR LUMBOSACRAL SPINE WITH OBLIQUES TECHNIQUE: AP, both oblique, and lateral views of the lumbar spine. Lateral view of the lumbosacral junction. FINDINGS: Vertebral body heights and alignment are normal. There is marked disc space narrowing at L4-L5. The remaining disc spaces are relatively well-maintained. No acute fracture or spondylolisthesis is seen. There is multi-level lower thoracic and lumbar endplate arthropathy. The posterior elements are intact. No spondylolysis defect seen on the oblique views. There is facet arthropathy, most pronounced at L4-L5 and L5-S1. The paravertebral soft tissues are unremarkable. A gastric band port is noted. IMPRESSION: 1. There is marked degenerative disc disease at L4-L5. 2. There is multi-level lower thoracic and lumbar endplate arthropathy. 3. No spondylolysis defect is seen. 4. There is facet arthropathy, most pronounced at L4-L5 and L5-S1. Assessment & Plan Assessment & Plan (1) Spondylosis of lumbar region without myelopathy or radiculopathy: Code(s): M47.816 - Spondylosis without myelopathy or radiculopathy, lumbar region Category: Medical (2) Spondylosis of lumbar spine: Code(s): M47.816 - Spondylosis without myelopathy or radiculopathy, lumbar region Category: Medical (3) Sacroiliac joint dysfunction of both sides: Code(s): M53.3 - Sacrococcygeal disorders, not elsewhere classified Category: Medical (4) Sacroiliitis: Code(s): M46.1 - Sacroiliitis, not elsewhere classified Category: Medical Plan Bilateral sacroiliac joint injection is nondiagnostic. The x-rays are as dictated as above and positive for facet joint problems and negative for sacroiliac joint inflammation. We agreed that I will schedule this patient for bilateral diagnostic L3-L4 dorsal ramus L5 medial branch block. Next appointment after injection. She promised not to go to sleep after this injection. Patient Instructions: I here by testify that I spent 30 minutes in conversation with this patient as well as planning her care and organizing this note. Coding Level of Care Code Est Pt Level 4 (75271) Diagnoses Spondylosis of lumbar region without myelopathy or radiculopathy M47.816 Spondylosis of lumbar spine M47.816 Sacroiliac joint dysfunction of both sides M53.3 Sacroiliitis M46.1
[2023-12-01 13:43] VITALS: BP 136/90; PULSE 87; RESP 12; O2SAT 93; BMI 34.8
== END 2023-12-01 13:47 | disposition home or self-care (01) ==
PROVIDERS: PCP General Practice; Visit Provider Anesthesiology
DX: M47.816 Spondylosis without myelopathy or radiculopathy, lumbar region (principal); M53.3 Sacrococcygeal disorders, not elsewhere classified; M46.1 Sacroiliitis, not elsewhere classified
CPT/HCPCS: 99214

== ENCOUNTER → 2023-12-01 13:31 | Outpatient (BNVA) | payer MEDICAID, SELFPAY | PROVIDERS: PCP General Practice; Visit Provider Anesthesiology | DX: M47.816 Spondylosis without myelopathy or radiculopathy, lumbar region (principal); M53.3 Sacrococcygeal disorders, not elsewhere classified; M46.1 Sacroiliitis, not elsewhere classified | CPT/HCPCS: 99212 ==

== ENCOUNTER 2023-12-30 11:07 | Outpatient (REF) | payer MEDICAID, SELFPAY ==
[2023-12-30 14:19] LABS: Anion Gap 13 (12-20); Blood Urea Nitrogen 13 mg/dL (9-16); Carbon Dioxide 32 mmol/L (22-29); Chloride 109 mmol/L (96-108); Estimated Glomerular Filt Rate > 60; Glucose Random 110 mg/dL (60-115); Potassium 4.4 mmol/L (3.3-5.1); Sodium 150 mmol/L (135-145)
== END 2023-12-30 11:08 | disposition home or self-care (01) ==
LOC: HO.HHCL 11:07
PROVIDERS: Visit Provider Internal Medicine
DX: E87.0 Hyperosmolality and hypernatremia (principal)
CPT/HCPCS: 36415; 80048

== ENCOUNTER 2024-01-03 06:10 | Outpatient (REF) | payer MEDICAID, SELFPAY | END 2024-01-03 06:11 | disposition home or self-care (01) | LOC: CF 06:10 | PROVIDERS: Visit Provider Anesthesiology | DX: Z13.89 Encounter for screening for other disorder (principal) ==

== ENCOUNTER 2024-02-20 13:51 | Outpatient (AMB) | payer MEDICAID, SELFPAY ==
--- NOTE | 2024-02-20 14:13 | A.OFFVIS_ITS ---
Vital Signs 02/20/24 14:14 Height 5 ft 5 in Weight 200 lb 2.876 oz BMI 33.3 BP 108/56 L Blood Pressure Location Lt brachial Position Sitting Pulse 96 Pulse Source Pulse Oximeter Intake Visit Reasons: follow up/pacer ck Drama Therapist Required: Yes Drama Therapist Services: Drama Therapist Present Drama Therapist Name: Arturo delacruz Allergies No Known Allergies [No Known Allergies*] Allergy (Verified 12/01/23 13:42) Medication List - Last Reconciled 02/20/24 by Keegan Simpson MD aspirin 1 tab PO DAILY atorvastatin 40 mg PO BEDTIME blood sugar diagnostic (FreeStyle Lite Strips) As directed cholecalciferol (vitamin D3) 25 mcg PO DAILY doxepin 10 mg PO DAILY dulaglutide (Trulicity) 0.75 mg subcut QWEEK haloperidol decanoate (Haldol Decanoate) 50 mg IM Q4W hydroxyzine HCl mg IM insulin glargine (Lantus Solostar U-100 Insulin) units subcut insulin lispro (Humalog KwikPen (U-100) Insulin) subcut insulin lispro subcut lancets (Pure Comfort Safety Lancets) As directed levothyroxine 50 mcg PO DAILY lisinopril 2.5 mg PO DAILY lorazepam (Ativan) 1 mg PO BID PRN metformin ER 1,000 mg PO BID pantoprazole 20 mg PO DAILY quetiapine (Seroquel) 100 mg PO DAILY sennosides-docusate sodium 8.6-50 mg (Senna Plus) 1 tab PO BID HPI Comments Details: Ysabel returns for follow-up regarding her pacemaker. To recall, she has multiple medical comorbidities including diabetes, hypertension, dyslipidemia, hypothyroidism, heart failure with preserved ejection fraction, obesity, schizoaffective disorder among others. In the past, she was admitted to [facility] with congestive heart failure. At that time, found to have right bundle-branch block, left posterior fascicular block and 2-1 AV block. Subsequently, she underwent pacemaker placement. Over the last year, she is doing fine. No new complaints. Nothing specific from cardiac. health service worker is with her. [facility] Medical History Hepatitis C Nocturnal hypoxia COVID-19 Gout Anemia Essential hypertension Type 2 diabetes mellitus with unspecified complications Nonimmune to hepatitis B virus Hypothyroidism Schizophrenia Chronic heart failure with preserved ejection fraction Hypoventilation associated with obesity AMMY (obstructive sleep apnea) Morbid obesity Surgical History Status post cardiac pacemaker procedure History of adjustable gastric banding Family History Mother Diabetes Hypertension Father Hyperlipidemia Social History Alcohol intake: never Patient Tobacco Use Status: Never used Tobacco Review of Systems Const Denies chills, Denies fatigue, Denies fever(s), Denies weight gain and Denies weight loss ENT Denies dizziness Card Denies chest pain, Denies leg edema, Denies lightheadedness, Denies palpitations, Denies dyspnea on exertion, Denies orthopnea and Denies other Resp Denies cough and Denies dyspnea on exertion GI Denies hematochezia and Denies change in stool character Musc Denies abnormal gait, Denies muscle weakness, Denies numbness, Denies radiating pain into limb and Denies tingling Neuro Denies abnormal gait, Denies dizziness, Denies numbness and Denies tingling Endo Denies fatigue and Denies palpitations Physical Exam Vital Signs: Last Vital Signs Pulse 96 02/20/24 14:14 BP 108/56 L 02/20/24 14:14 BMI result Body Mass Index 33.3 Const General: comfortable and no acute distress Orientation/consciousness: patient oriented x3 HEENT Other: Unremarkable Head: Yes normal to inspection Neck Neck: Yes normal visual inspection Chest Chest palpation & inspection: normal inspection of the chest Resp Auscultation: clear to auscultation bilaterally Cardio Palpation: normal PMI Heart sounds: S1 normal heart sound present, S2 normal heart sound present, no gallops, no murmurs and no rubs GI Palpation (GI): Soft to palpation Back/Spine/Pelvis Other: unremarkable Skin General skin exam: no rashes or lesions noted Neuro General: patient oriented x3 Extrem General: Yes normal to inspection Psych Mental Status: mental status grossly normal Office Procedures Cardiac Device Check Cardiac Device Check Details: Pacemaker interrogated today. Dual-chamber device, programmed DDD mode. Battery status more than 7 years. Normal lead parameters. Atrial pacing 1.8%. Ventricular pacing > 99%. No significant arrhythmias. Overall, normal device function. [id number] Cardiac Device Check, pacemaker dual lead Procedure code (CPT) selection complete Assessment & Plan Assessment & Plan (1) Status post cardiac pacemaker procedure: Code(s): Z95.0 - Presence of cardiac pacemaker Category: Surgical Plan: Based on [facility] documentation, congestive heart failure as well as 2-1 av block with background of bifascicular block. Subsequently, underwent permanent pacemaker procedure. Normally functioning. (2) Chronic heart failure with preserved ejection fraction: Code(s): I50.32 - Chronic diastolic (congestive) heart failure Category: Medical Plan: Stable. No active heart failure symptoms or signs. (3) AMMY (obstructive sleep apnea): Comment: Patient is known case of AMMY / Hypoventilation Syndrome ,but could not use the CPAP. Code(s): G47.33 - Obstructive sleep apnea (adult) (pediatric) Category: Medical Plan: Not being treated as patient is apparently not able to use CPAP or BiPAP. Pulmonary note reviewed. Plan Total time spent including review of data, counseling, documentation, coordination of care-30 minutes; this excludes time spent in evaluation of pacemaker and documentation Coding Level of Care Code Est Pt Level 4 (74769) Diagnoses Status post cardiac pacemaker procedure Z95.0 Chronic heart failure with preserved ejection fraction I50.32 AMMY (obstructive sleep apnea) G47.33 CPT Codes Cardiac Device Check - Cardiac Device 2: [id number] Cardiac Device Check, pacemaker dual lead ([id number])
[2024-02-20 14:14] VITALS: BP 108/56; PULSE 96; BMI 33.3
== END 2024-02-20 14:35 | disposition home or self-care (01) ==
PROVIDERS: PCP General Practice; Referring Provider General Practice; Visit Provider Internal Medicine
DX: I50.32 Chronic diastolic (congestive) heart failure (principal); G47.33 Obstructive sleep apnea (adult) (pediatric); Z95.0 Presence of cardiac pacemaker
CPT/HCPCS: 93280; 99214

== ENCOUNTER → 2024-02-20 13:51 | Outpatient (BNVA) | payer MEDICAID, SELFPAY | PROVIDERS: PCP General Practice; Visit Provider Internal Medicine | DX: I11.0 Hypertensive heart disease with heart failure (principal); I50.32 Chronic diastolic (congestive) heart failure; G47.33 Obstructive sleep apnea (adult) (pediatric); E66.9 Obesity, unspecified; Z45.018 Encounter for adjustment and management of other part of cardiac pacemaker | CPT/HCPCS: 93280; 99212 ==

== ENCOUNTER → 2024-02-29 23:59 | Outpatient (BNV) | payer MEDICAID, SELFPAY ==
--- NOTE | 2024-03-04 18:50 | MHC.OFFVIS ---
Intake Visit Reasons: Remote device check- [facility] Allergies No Known Allergies [No Known Allergies*] Allergy (Verified 12/01/23 13:42) [facility] Medical History Hepatitis C Nocturnal hypoxia COVID-19 Gout Anemia Essential hypertension Type 2 diabetes mellitus with unspecified complications Nonimmune to hepatitis B virus Hypothyroidism Schizophrenia Chronic heart failure with preserved ejection fraction Hypoventilation associated with obesity AMMY (obstructive sleep apnea) Morbid obesity Surgical History Status post cardiac pacemaker procedure History of adjustable gastric banding Family History Mother Diabetes Hypertension Father Hyperlipidemia Social History Alcohol intake: never Patient Tobacco Use Status: Never used Tobacco Office Procedures Cardiac Device Check Cardiac Device Check Details: Date of service- 02/29/2024 ; Battery life >7 years; normal lead parameters; AP <1%; [employer] >99%; no significant arrhythmias. Overall normal device function. [id number] Cardiac Device Interrogation, pacemaker Procedure code (CPT) selection complete Assessment & Plan Assessment & Plan (1) Complete heart block: Code(s): I44.2 - Atrioventricular block, complete Category: Medical Plan x Coding Level of Care Code Procedure Only Diagnoses Complete heart block I44.2 CPT Codes Cardiac Device Check - Cardiac Device 12: [id number] Cardiac Device Interrogation, pacemaker ([id number])
== END ==
PROVIDERS: PCP General Practice; Visit Provider Internal Medicine
DX: I44.2 Atrioventricular block, complete (principal); Z95.0 Presence of cardiac pacemaker
CPT/HCPCS: 93294

== ENCOUNTER 2024-03-22 19:58 | Inpatient (IN) | payer OTHER, SELFPAY ==
[2024-03-22 20:45] VITALS: BMI 32.3
[2024-03-22 23:11] LABS: Glucose, Whole Blood 195 mg/dL (60-115)
[2024-03-22] MEDS: Insulin Glargine,Hum.rec.anlog 100 UNIT/ML 10 ML VIAL 40 UNIT SUBCUT (23:25)
--- NOTE | 2024-03-23 06:00 | PC.ADMIT ---
Pt is a 63 year old, irish speaking only, female requiring the use of an television agent. Pt was admitted to the unit after transfer from [facility]. Arrived on unit at 2027 on 03/22/24. Pt legal status is 12B. Pt utilized a cane and was given use of a rolling walker after admission. Pt states that she uses the cane for back pain for a year now but then states that the witchcraft sx just started. Pt medical issues are asthma, ? of COPD, DMII, and hyperlipidemia. Pt reports that she uses 2L 02 at night. Pt denies substance use, etoh use or tobacco use. Pt requested a flu vaccine. Precipitant to admission was that she believes that she has been affected by witchcraft and that she was talking to a man on Facebook who she believes may have put some kind of witchcraft spell on her. She states that her buttocks, kidneys, abdomen and chest have been causing her discomfort. States that she heard a whizzing in her left ear and a rose used in witchcraft. She states it was after that point that she started having all of the witchcraft sx. Stated that it felt like a machine was breaking my bones . Pt lives in a multi family house with her 37 year old son. Pt reports about 8 [place] [facility] [place] hospitalized for AH telling her to kill her son . Pt presents as a pleasant and attentive person. She seems to have these witchcraft sx yet she is very good historian about most everything in her care, etc. Pt was tearful at times. Pt denies any falls hx but is a high fall risk d/t walker. Provider portable irrigation operator was notified of admission and orders were obtained. Pt placed on 15 minute checks for safety. Pt feels safe here on unit.
[2024-03-23] MEDS: Levothyroxine Sodium 50 MCG TABLET PO (06:42)
[2024-03-23 08:00] VITALS: BP 112/60; PULSE 74; RESP 16; TEMP 36.4; O2SAT 100
[2024-03-23 08:37] LABS: Estimated Average Glucose 154 mg/dL
[2024-03-23 08:38] LABS: Glucose, Whole Blood 95 mg/dL (60-115)
[2024-03-23 09:13] LABS: Folate 11.5 ng/mL (> or = 4.0); Vitamin B12 388 pg/mL (200-900)
[2024-03-23] MEDS: lisinopriL 2.5 MG TABLET PO (09:19)
[2024-03-23] MEDS: Gabapentin 600 MG TABLET PO ×3 (09:19→21:24)
[2024-03-23] MEDS: Atorvastatin Calcium 40 MG TABLET PO (09:19)
[2024-03-23] MEDS: metFORMIN HCl 1,000 MG TABLET 1000 MG PO ×2 (09:19→16:21)
[2024-03-23] MEDS: Aspirin 81 MG TAB.CHEW PO (09:19)
[2024-03-23] MEDS: Flu Vacc TS2024-25(6mos up)/PF 0.5 ML SYRINGE IM (09:21)
[2024-03-23 10:56] LABS: Alanine Aminotransferase 47 U/L (0-31); Albumin Level 3.9 g/dL (3.5-5.0); Alkaline Phosphatase 66 U/L (39-117); Anion Gap 13 (12-20); Aspartate Amino Transferase 31 U/L (5-31); Bilirubin Total 0.3 mg/dL (0.0-1.0); Blood Urea Nitrogen 19 mg/dL (9-16); Calcium 10.2 mg/dL (8.4-10.2); Carbon Dioxide 28 mmol/L (22-29); Chloride 110 mmol/L (96-108); Cholesterol 130 mg/dL (<200); Creatinine Clr Calc Pharmacy 76.8; Estimated Glomerular Filt Rate > 60; Glucose Fasting 201 mg/dL (60-99); HDL Cholesterol 39 mg/dL (>40); LDL Cholesterol Calculated 61 mg/dL (<100); Magnesium 1.8 mg/dL (1.6-2.6); Potassium 3.9 mmol/L (3.3-5.1); Sodium 147 mmol/L (135-145); Total Protein 7.3 g/dL (6.5-8.0); Triglycerides 150 mg/dL (<150)
[2024-03-23 11:06] LABS: Thyroid Stimulating Hormone 2.54 uIU/mL (0.32-4.0)
[2024-03-23 13:19] LABS: Glucose, Whole Blood 218 mg/dL (60-115)
[2024-03-23] MEDS: Insulin Lispro 100 UNIT/ML 3 ML VIAL SUBCUT ×2 (13:28→21:22)
--- NOTE | 2024-03-23 15:56 | P.HPPSP_ITS ---
HPI Date of Service: 03/23/24 Chief Complaint: Unspecified Depressive Disorder, Uns Schizophrenia Sources of Information: patient interviewed, chart reviewed and crisis/core team assessment reviewed Additional Sources of Information: er notes lonny patient seen with the aid of an motorized squad sergeant HPI Medical Problems Affecting Mental Status: No Past Psychiatric History: Past history of 1 suicide attempt in relationship to her passed psychotic episodes with auditory hallucinations she does have an a CCS team and CHD. Medical Evaluation Reviewed: Hospitalist Eval Pending [facility] Medical History Hepatitis C Nocturnal hypoxia COVID-19 Gout Anemia Essential hypertension Type 2 diabetes mellitus with unspecified complications Nonimmune to hepatitis B virus Hypothyroidism Schizophrenia Chronic heart failure with preserved ejection fraction Hypoventilation associated with obesity AMMY (obstructive sleep apnea) Morbid obesity Surgical History Status post cardiac pacemaker procedure History of adjustable gastric banding Family History: denies psych hx Social History: Patient lives with her son history of chronic mental illness Substance History: none noted Diagnostics Vital Signs (24Hr): Vital Signs - 24 hr 03/23/24 08:00 Temperature 97.6 F Pulse Rate 74 Respiratory Rate 16 Blood Pressure 112/60 Pulse Oximetry 100 Oxygen Delivery Method Room Air BMI result Body Mass Index 32.3 Labs 03/23/24 09:42 Labs: Laboratory Results - last 48 hr 03/22/24 03/23/24 03/23/24 23:06 07:59 08:34 Sodium Potassium Chloride Carbon Dioxide Anion Gap BUN Creatinine Estim Creat Clear Calc Estimated GFR POC Glucose 195 H 95 Fasting Glucose Estimat Average Glucose 154 Hemoglobin A1c % 7.0 H Calcium Magnesium Total Bilirubin AST ALT Alkaline Phosphatase Total Protein Albumin Triglycerides Cholesterol LDL Cholesterol, Calc HDL Cholesterol Vitamin B12 388 Folate 11.5 TSH 03/23/24 03/23/24 09:42 13:16 Sodium 147 H Potassium 3.9 Chloride 110 H Carbon Dioxide 28 Anion Gap 13 BUN 19 H Creatinine 0.85 Estim Creat Clear Calc 76.8 Estimated GFR > 60 POC Glucose 218 H Fasting Glucose 201 H Estimat Average Glucose Hemoglobin A1c % Calcium 10.2 Magnesium 1.8 Total Bilirubin 0.3 AST 31 ALT 47 H Alkaline Phosphatase 66 Total Protein 7.3 Albumin 3.9 Triglycerides 150 H Cholesterol 130 LDL Cholesterol, Calc 61 HDL Cholesterol 39 L Vitamin B12 Folate TSH 2.54 Meds/Allergies Meds Home Medications ?Medication ?Instructions ?Recorded ?Confirmed ?Type blood sugar diagnostic (FreeStyle #10 ea 02/10/22 02/20/24 History Lite Strips) dulaglutide 0.75 mg/0.5 mL 0.75 mg subcut QWEEK 02/10/22 02/20/24 History subcutaneous pen injector (Trulicity) insulin glargine 100 unit/mL (3 unit subcut 02/10/22 02/20/24 History mL) subcutaneous pen (Lantus Solostar U-100 Insulin) insulin lispro 100 unit/mL subcut 02/10/22 02/20/24 History subcutaneous pen (Humalog KwikPen (U-100) Insulin) insulin lispro 100 unit/mL subcut 02/10/22 02/20/24 History subcutaneous solution lancets 30 gauge (Pure Comfort #100 ea 02/10/22 02/20/24 History Safety Lancets) doxepin 10 mg capsule 10 mg PO DAILY 03/03/22 02/20/24 History haloperidol decanoate 50 mg/mL 50 mg IM Q4W 03/03/22 02/20/24 History intramuscular solution (Haldol Decanoate) hydroxyzine HCl 50 mg/mL mg IM 03/03/22 02/20/24 History intramuscular syringe lorazepam 1 mg tablet (Ativan) 1 mg PO BID PRN 03/03/22 02/20/24 History quetiapine 100 mg tablet (Seroquel) 100 mg PO DAILY 03/03/22 02/20/24 History aspirin 81 mg chewable tablet 1 tab PO DAILY 10/06/22 02/20/24 History atorvastatin 40 mg tablet 40 mg PO BEDTIME 10/06/22 02/20/24 History cholecalciferol (vitamin D3) 25 25 mcg PO DAILY 10/06/22 02/20/24 History mcg (1,000 unit) tablet levothyroxine 50 mcg tablet 50 mcg PO DAILY 10/06/22 02/20/24 History lisinopril 2.5 mg tablet 2.5 mg PO DAILY 10/06/22 02/20/24 History metformin 500 mg tablet,extended 1,000 mg PO BID 10/06/22 02/20/24 History release 24 hr pantoprazole 20 mg tablet,delayed 20 mg PO DAILY 10/06/22 02/20/24 History release sennosides 8.6 mg-docusate sodium 1 tab PO BID constipation 10/06/22 02/20/24 History 50 mg tablet (Senna Plus) Allergies Allergies Allergy/AdvReac Type Severity Reaction Status Date / Time risperidone Allergy Unknown Verified 03/23/24 03:56 Assessment & Plan Informed Consent: further education needed Reason for continued partial hosp. stay Substantial Risk for: inability to function, rapid decompensation and med/psych decompensation Certification I certify that partial hospital treatment is medically necessary due to the symptoms and problems resulting from the patient's mental illness and the failure to treat the patient at the partial hospital level of care would likely result in the patient requiring inpatient psychiatric care which could not be prevented at a less intensive level of care. Time Spent With Patient Time: Total time managing care of this patient today ____ minutes.
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
--- NOTE | 2024-03-23 16:25 | ECG_ITS ---
Test Reason : History of ventricular arrhythmia pacemaker Blood Pressure : / mmHG Vent. Rate : 084 BPM Atrial Rate : 084 BPM P-R Int : 144 ms QRS Dur : 126 ms QT Int : 416 ms P-R-T Axes : 049 101 022 degrees QTc Int : 491 ms Normal sinus rhythm Right bundle branch block Abnormal ECG When compared with ECG of 12-APR-2017 22:32, QT has shortened Referred By: Oswald Cavanaugh Electronically Signed By:FAISAL DEJESUS
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
[2024-03-23 17:35] LABS: Glucose, Whole Blood 97 mg/dL (60-115)
[2024-03-23 20:00] VITALS: BP 136/62; PULSE 100; RESP 16; TEMP 36.6; O2SAT 97
[2024-03-23 20:31] LABS: Glucose, Whole Blood 207 mg/dL (60-115)
[2024-03-23] MEDS: Insulin Glargine,Hum.rec.anlog 100 UNIT/ML 10 ML VIAL 40 UNIT SUBCUT (21:23)
[2024-03-23] MEDS: QUEtiapine Fumarate 100 MG TABLET PO (21:24)
[2024-03-23] MEDS: LORazepam 0.5 MG TABLET PO (23:11)
[2024-03-23] MEDS: traZODone HCL 50 MG TABLET PO (23:11)
[2024-03-24 02:30] VITALS: O2SAT 100
[2024-03-24 02:57] VITALS: O2SAT 100
--- NOTE | 2024-03-24 08:06 | P.PNPSI_ITS ---
Subjective Subjective Date of Service: 03/24/24 Reason For Visit: Unspecified Depressive Disorder, Uns Schizophrenia Interim History: Reports feeling she is being hit/punched in the back. On further questioning believes this is due to witchcraft and witches attacking her at night. Able to clearly separate this out from back pain due to nerve issues she has had. Denies SI, depression or hallucinations. Feeling safe and social on the unit now there are other macedonian speaking patients. Side effects from medications: No Attending Groups: Yes Review of Systems Acute medical concerns: No Review of Systems Review of Systems reports feeling she is being hit/punched in the back. On further questioning believes this is due to witchcraft and witches attacking her at night. Mental Status Exam Mental Status Exam Narrative: Mental Status Exam Narrative: Seen with aid of an spanish medical interpreter Appearance: Wearing hospital garb Behavior: Cooperative psychomotor: Speech somewhat pressured: Thought proccess somewhat racing circumstantial Thought content: Focused on different bodily sensations being controlled by witchcraft Mood: Described as good Affect mildly expansive somewhat anxious and apprehensive: SI:denies HI:denies VH/AH:none Delusions: Insight/judgment: Impaired Memory/cog: Grossly wnl Diagnostics Vital Signs (24Hr): Vital Signs - 24 hr 03/23/24 20:00 03/24/24 02:30 03/24/24 02:57 Temperature 97.9 F Pulse Rate 100 Respiratory Rate 16 Blood Pressure 136/62 Pulse Oximetry 97 100 100 Oxygen Delivery Method Room Air Nasal Cannula Nasal Cannula 03/24/24 06:38 Temperature Pulse Rate Respiratory Rate Blood Pressure Pulse Oximetry Oxygen Delivery Method Nasal Cannula BMI result Body Mass Index 32.3 Labs 03/23/24 09:42 Labs: Laboratory Results - last 48 hr 03/22/24 03/23/24 03/23/24 23:06 07:59 08:34 Sodium Potassium Chloride Carbon Dioxide Anion Gap BUN Creatinine Estim Creat Clear Calc Estimated GFR POC Glucose 195 H 95 Fasting Glucose Estimat Average Glucose 154 Hemoglobin A1c % 7.0 H Calcium Magnesium Total Bilirubin AST ALT Alkaline Phosphatase Total Protein Albumin Triglycerides Cholesterol LDL Cholesterol, Calc HDL Cholesterol Vitamin B12 388 Folate 11.5 TSH 03/23/24 03/23/24 03/23/24 09:42 13:16 17:27 Sodium 147 H Potassium 3.9 Chloride 110 H Carbon Dioxide 28 Anion Gap 13 BUN 19 H Creatinine 0.85 Estim Creat Clear Calc 76.8 Estimated GFR > 60 POC Glucose 218 H 97 Fasting Glucose 201 H Estimat Average Glucose Hemoglobin A1c % Calcium 10.2 Magnesium 1.8 Total Bilirubin 0.3 AST 31 ALT 47 H Alkaline Phosphatase 66 Total Protein 7.3 Albumin 3.9 Triglycerides 150 H Cholesterol 130 LDL Cholesterol, Calc 61 HDL Cholesterol 39 L Vitamin B12 Folate TSH 2.54 03/23/24 20:26 Sodium Potassium Chloride Carbon Dioxide Anion Gap BUN Creatinine Estim Creat Clear Calc Estimated GFR POC Glucose 207 H Fasting Glucose Estimat Average Glucose Hemoglobin A1c % Calcium Magnesium Total Bilirubin AST ALT Alkaline Phosphatase Total Protein Albumin Triglycerides Cholesterol LDL Cholesterol, Calc HDL Cholesterol Vitamin B12 Folate TSH Medications Medications Current Medications Acetaminophen (Acetaminophen 325 Mg Tablet) 650 mg PO Q6H PRN PRN Reason: Headache/Pain Mild Scale (1-3) Al Hydroxide/Mg Hydroxide (Magnesium Hydrox/Alum Hydrox 30 Ml Oral.Susp) 30 ml PO Q6H PRN PRN Reason: Heartburn/Nausea Aspirin (Aspirin 81 Mg Tab.Chew) 81 mg PO DAILY [facility] Last Admin: 03/23/24 09:19 Dose: 81 mg Atorvastatin Calcium (Atorvastatin Calcium 40 Mg Tablet) 40 mg PO DAILY [facility] Last Admin: 03/23/24 09:19 Dose: 40 mg Gabapentin (Gabapentin 600 Mg Tablet) 600 mg PO TID [facility] Last Admin: 03/23/24 21:24 Dose: 600 mg Glucose (Glucose Gel 15 Gm Gel..Gram.) 15 gm PO Q15M PRN PRN Reason: per Hypoglycemia Standing Ord. Hydroxyzine HCl (Hydroxyzine Hcl 25 Mg Tablet) 25 mg PO Q6H PRN PRN Reason: Anxiety Insulin Glargine (Insulin Glargine,Hum.Rec.Anlog 100 Unit/Ml 10 Ml Vial) 40 unit SUBCUT BEDTIME [facility] Last Admin: 03/23/24 21:23 Dose: 40 unit Insulin Human Lispro (Insulin Lispro 100 Unit/Ml 3 Ml Vial) 0 unit SUBCUT QIDACHS [facility]; Protocol Last Admin: 03/23/24 21:22 Dose: 4 unit Levothyroxine Sodium (Levothyroxine Sodium 50 Mcg Tablet) 50 mcg PO DAILY@0600 [facility] Last Admin: 03/23/24 06:42 Dose: 50 mcg Lidocaine (Lidocaine 4 % Patch Adh..Patch) 1 patch TRANSDERMA DAILY [facility]; Protocol Last Admin: 03/23/24 17:33 Dose: Not Given Lisinopril (Lisinopril 2.5 Mg Tablet) 2.5 mg PO DAILY [facility]; Protocol Last Admin: 03/23/24 09:19 Dose: 2.5 mg Lorazepam (Lorazepam 0.5 Mg Tablet) 0.5 mg PO Q8H PRN PRN Reason: panic attack Last Admin: 03/23/24 23:11 Dose: 0.5 mg Magnesium Hydroxide (Milk Of Magnesia 30 Ml Oral.Susp) 30 ml PO DAILY PRN PRN Reason: Constipation Metformin HCl (Metformin Hcl 1,000 Mg Tablet) 1,000 mg PO BIDWM [facility] Last Admin: 03/23/24 16:21 Dose: 1,000 mg Nicotine Polacrilex (Nicotine Polacrilex 2 Mg Gum) 2 mg BUCCAL Q2H PRN PRN Reason: Nicotine Cravings Olanzapine (Olanzapine 5 Mg Tablet) 5 mg PO Q6H PRN PRN Reason: agitation Quetiapine Fumarate (Quetiapine Fumarate 100 Mg Tablet) 100 mg PO BEDTIME [facility] Last Admin: 03/23/24 21:24 Dose: 100 mg Trazodone HCl (Trazodone Hcl 50 Mg Tablet) 50 mg PO BEDTIME MRX1 PRN PRN Reason: Insomnia Last Admin: 03/23/24 23:11 Dose: 50 mg Allergies Allergies Allergy/AdvReac Type Severity Reaction Status Date / Time risperidone Allergy Unknown Verified 03/23/24 03:56 Assessment & Plan Assessment & Plan (1) Schizoaffective disorder: Status: Acute Code(s): F25.9 - Schizoaffective disorder, unspecified (2) Sacroiliac joint dysfunction of both sides: Status: Acute Code(s): M53.3 - Sacrococcygeal disorders, not elsewhere classified (3) Spondylosis of lumbar region without myelopathy or radiculopathy: Status: Acute Code(s): M47.816 - Spondylosis without myelopathy or radiculopathy, lumbar region (4) Type 2 diabetes mellitus with unspecified complications: Status: Acute Code(s): E11.8 - Type 2 diabetes mellitus with unspecified complications (5) Nocturnal hypoxia: Status: Acute Code(s): G47.34 - Idiopathic sleep related nonobstructive alveolar hypoventilation (6) Chronic heart failure with preserved ejection fraction: Status: Acute Code(s): I50.32 - Chronic diastolic (congestive) heart failure (7) Bifascicular bundle branch block: Status: Acute Code(s): I45.2 - Bifascicular block (8) Status post cardiac pacemaker procedure: Status: Acute Code(s): Z95.0 - Presence of cardiac pacemaker Plan Patient with unclear psychiatric history has reportedly been stable on Seroquel 100 mg. Seems somewhat expansive mildly pressured and anxious preoccupied over the past number of days with what appears to be delusional preoccupation that somehow her body is being affected by witchcraft. Medical workup has been negative unclear if patient has been taking Seroquel the past few nights does not appear she was getting her nocturnal O2 when she was at [facility]. Allergies noted to Risperdal may need to increase Seroquel as tolerated olanzapine p.r.n. has been ordered. Could consider more weight neutral alternatives if needs to be on medication increased more chronically such as Ursula Newton would not be appropriate given cardiac issues check labs in EKG see chest CTA and chest x-ray from [facility] [place] patient admitted on section 12 B Clarify diagnostic and medical issues Restart nocturnal oxygen Lidocaine started Hospitalist consult Monitor blood pressure if increase Seroquel Patient has walker Social work for coordination of care discharge planning family contact education Low-dose lorazepam for questionable panic attacks 03/24: no changes Reason for continued inpatient stay Substantial Risk for: inability to function Time Spent With Patient Time: Total time managing care of this patient today ____ minutes.
[2024-03-24 08:17] VITALS: BP 135/66; PULSE 73; RESP 16; TEMP 36.4; O2SAT 96
[2024-03-24] MEDS: Levothyroxine Sodium 50 MCG TABLET PO (08:39)
[2024-03-24] MEDS: metFORMIN HCl 1,000 MG TABLET 1000 MG PO ×2 (08:39→18:06)
[2024-03-24] MEDS: lisinopriL 2.5 MG TABLET PO (08:40)
[2024-03-24] MEDS: Aspirin 81 MG TAB.CHEW PO (08:40)
[2024-03-24] MEDS: Atorvastatin Calcium 40 MG TABLET PO (08:40)
[2024-03-24] MEDS: Gabapentin 600 MG TABLET PO ×2 (08:40→22:18)
[2024-03-24 09:10] LABS: Glucose, Whole Blood 114 mg/dL (60-115)
[2024-03-24] MEDS: Lidocaine 4 % Patch ADH..PATCH 1 PATCH TRANSDERMA ×2 (11:06→22:37)
[2024-03-24 12:53] LABS: Glucose, Whole Blood 160 mg/dL (60-115)
[2024-03-24] MEDS: Insulin Lispro 100 UNIT/ML 3 ML VIAL SUBCUT ×2 (12:54→18:05)
[2024-03-24 17:54] LABS: Glucose, Whole Blood 168 mg/dL (60-115)
[2024-03-24 20:00] VITALS: BP 125/59; PULSE 93; RESP 18; TEMP 36.4; O2SAT 97
[2024-03-24 20:55] LABS: Glucose, Whole Blood 150 mg/dL (60-115)
[2024-03-24] MEDS: traZODone HCL 50 MG TABLET PO (22:18)
[2024-03-24] MEDS: QUEtiapine Fumarate 100 MG TABLET PO (22:18)
[2024-03-24] MEDS: Insulin Glargine,Hum.rec.anlog 100 UNIT/ML 10 ML VIAL 40 UNIT SUBCUT (22:20)
[2024-03-25 02:00] VITALS: O2SAT 96
[2024-03-25] MEDS: Levothyroxine Sodium 50 MCG TABLET PO (06:45)
[2024-03-25 08:00] VITALS: BP 133/61; PULSE 89; RESP 16; TEMP 36.4; O2SAT 98
--- NOTE | 2024-03-25 08:11 | P.PNPSI_ITS ---
Subjective Subjective Date of Service: 03/25/24 Reason For Visit: Unspecified Depressive Disorder, Uns Schizophrenia Medical Problems Affecting Mental Status: No Interim History: Still feeling that she is being targeted by witchcraft who are hurting her back and pulling on her muscles. Otherwise denies feeling depressed or suicidal. Appetite okay. No medication concerns. Spending time in the milieu with Gambian speaking patient and playing card games. Medication Compliance: Yes Side effects from medications: No Attending Groups: Yes Review of Systems Acute medical concerns: No Review of Systems Review of Systems reports feeling she is being hit/punched in the back. On further questioning believes this is due to witchcraft and witches attacking her at night. Mental Status Exam Mental Status Exam Narrative: Mental Status Exam Narrative: Seen with aid of an hourly sign language interpreter Appearance: Wearing hospital garb Behavior: Cooperative psychomotor: Speech somewhat pressured: Thought proccess somewhat racing circumstantial Thought content: Focused on different bodily sensations being controlled by witchcraft Mood: Described as good Affect mildly expansive somewhat anxious and apprehensive: SI:denies HI:denies VH/AH:none Delusions: Witchcraft Insight/judgment: Impaired Memory/cog: Grossly wnl Diagnostics Vital Signs (24Hr): Vital Signs - 24 hr 03/24/24 08:17 03/24/24 20:00 03/25/24 02:00 Temperature 97.6 F 97.6 F Pulse Rate 73 93 Respiratory Rate 16 18 Blood Pressure 135/66 125/59 L Pulse Oximetry 96 97 96 Oxygen Delivery Method Room Air Room Air Nasal Cannula Oxygen Flow Rate 2 BMI result Body Mass Index 32.3 Labs 03/23/24 09:42 Labs: Laboratory Results - last 48 hr 03/23/24 03/23/24 03/23/24 07:59 08:34 09:42 Sodium 147 H Potassium 3.9 Chloride 110 H Carbon Dioxide 28 Anion Gap 13 BUN 19 H Creatinine 0.85 Estim Creat Clear Calc 76.8 Estimated GFR > 60 POC Glucose 95 Fasting Glucose 201 H Estimat Average Glucose 154 Hemoglobin A1c % 7.0 H Calcium 10.2 Magnesium 1.8 Total Bilirubin 0.3 AST 31 ALT 47 H Alkaline Phosphatase 66 Total Protein 7.3 Albumin 3.9 Triglycerides 150 H Cholesterol 130 LDL Cholesterol, Calc 61 HDL Cholesterol 39 L Vitamin B12 388 Folate 11.5 TSH 2.54 09/01/0803/23/24 03/23/24 13:16 17:27 20:26 Sodium Potassium Chloride Carbon Dioxide Anion Gap BUN Creatinine Estim Creat Clear Calc Estimated GFR POC Glucose 218 H 97 207 H Fasting Glucose Estimat Average Glucose Hemoglobin A1c % Calcium Magnesium Total Bilirubin AST ALT Alkaline Phosphatase Total Protein Albumin Triglycerides Cholesterol LDL Cholesterol, Calc HDL Cholesterol Vitamin B12 Folate [facility] 03/24/24 03/24/24 03/24/24 09:05 12:35 17:50 Sodium Potassium Chloride Carbon Dioxide Anion Gap BUN Creatinine Estim Creat Clear Calc Estimated GFR POC Glucose 114 160 H 168 H Fasting Glucose Estimat Average Glucose Hemoglobin A1c % Calcium Magnesium Total Bilirubin AST ALT Alkaline Phosphatase Total Protein Albumin Triglycerides Cholesterol LDL Cholesterol, Calc HDL Cholesterol Vitamin B12 Folate [facility] 03/24/24 20:52 Sodium Potassium Chloride Carbon Dioxide Anion Gap BUN Creatinine Estim Creat Clear Calc Estimated GFR POC Glucose 150 H Fasting Glucose Estimat Average Glucose Hemoglobin A1c % Calcium Magnesium Total Bilirubin AST ALT Alkaline Phosphatase Total Protein Albumin Triglycerides Cholesterol LDL Cholesterol, Calc HDL Cholesterol Vitamin B12 Folate TSH Medications Medications Current Medications Acetaminophen (Acetaminophen 325 Mg Tablet) 650 mg PO Q6H PRN PRN Reason: Headache/Pain Mild Scale (1-3) Al Hydroxide/Mg Hydroxide (Magnesium Hydrox/Alum Hydrox 30 Ml Oral.Susp) 30 ml PO Q6H PRN PRN Reason: Heartburn/Nausea Aspirin (Aspirin 81 Mg Tab.Chew) 81 mg PO DAILY [facility] Last Admin: 03/24/24 08:40 Dose: 81 mg Atorvastatin Calcium (Atorvastatin Calcium 40 Mg Tablet) 40 mg PO DAILY [facility] Last Admin: 03/24/24 08:40 Dose: 40 mg Gabapentin (Gabapentin 600 Mg Tablet) 600 mg PO TID [facility] Last Admin: 03/24/24 22:18 Dose: 600 mg Glucose (Glucose Gel 15 Gm Gel..Gram.) 15 gm PO Q15M PRN PRN Reason: per Hypoglycemia Standing Ord. Hydroxyzine HCl (Hydroxyzine Hcl 25 Mg Tablet) 25 mg PO Q6H PRN PRN Reason: Anxiety Insulin Glargine (Insulin Glargine,Hum.Rec.Anlog 100 Unit/Ml 10 Ml Vial) 40 unit SUBCUT BEDTIME [facility] Last Admin: 03/24/24 22:20 Dose: 40 unit Insulin Human Lispro (Insulin Lispro 100 Unit/Ml 3 Ml Vial) 0 unit SUBCUT QIDACHS [facility]; Protocol Last Admin: 03/24/24 20:54 Dose: Not Given Levothyroxine Sodium (Levothyroxine Sodium 50 Mcg Tablet) 50 mcg PO DAILY@0600 [facility] Last Admin: 03/25/24 06:45 Dose: 50 mcg Lidocaine (Lidocaine 4 % Patch Adh..Patch) 1 patch TRANSDERMA DAILY [facility]; Protocol Last Admin: 03/24/24 11:06 Dose: 1 patch Lisinopril (Lisinopril 2.5 Mg Tablet) 2.5 mg PO DAILY [facility]; Protocol Last Admin: 03/24/24 08:40 Dose: 2.5 mg Lorazepam (Lorazepam 0.5 Mg Tablet) 0.5 mg PO Q8H PRN PRN Reason: panic attack Last Admin: 03/23/24 23:11 Dose: 0.5 mg Magnesium Hydroxide (Milk Of Magnesia 30 Ml Oral.Susp) 30 ml PO DAILY PRN PRN Reason: Constipation Metformin HCl (Metformin Hcl 1,000 Mg Tablet) 1,000 mg PO BIDWM [facility] Last Admin: 03/24/24 18:06 Dose: 1,000 mg Nicotine Polacrilex (Nicotine Polacrilex 2 Mg Gum) 2 mg BUCCAL Q2H PRN PRN Reason: Nicotine Cravings Olanzapine (Olanzapine 5 Mg Tablet) 5 mg PO Q6H PRN PRN Reason: agitation Quetiapine Fumarate (Quetiapine Fumarate 100 Mg Tablet) 100 mg PO BEDTIME [facility] Last Admin: 03/24/24 22:18 Dose: 100 mg Trazodone HCl (Trazodone Hcl 50 Mg Tablet) 50 mg PO BEDTIME MRX1 PRN PRN Reason: Insomnia Last Admin: 03/24/24 22:18 Dose: 50 mg Allergies Allergies Allergy/AdvReac Type Severity Reaction Status Date / Time risperidone Allergy Unknown Verified 03/23/24 03:56 Assessment & Plan Assessment & Plan (1) Schizoaffective disorder: Status: Acute Code(s): F25.9 - Schizoaffective disorder, unspecified (2) Sacroiliac joint dysfunction of both sides: Status: Acute Code(s): M53.3 - Sacrococcygeal disorders, not elsewhere classified (3) Spondylosis of lumbar region without myelopathy or radiculopathy: Status: Acute Code(s): M47.816 - Spondylosis without myelopathy or radiculopathy, lumbar region (4) Type 2 diabetes mellitus with unspecified complications: Status: Acute Code(s): E11.8 - Type 2 diabetes mellitus with unspecified complications (5) Nocturnal hypoxia: Status: Acute Code(s): G47.34 - Idiopathic sleep related nonobstructive alveolar hypoventilation (6) Chronic heart failure with preserved ejection fraction: Status: Acute Code(s): I50.32 - Chronic diastolic (congestive) heart failure (7) Bifascicular bundle branch block: Status: Acute Code(s): I45.2 - Bifascicular block (8) Status post cardiac pacemaker procedure: Status: Acute Code(s): Z95.0 - Presence of cardiac pacemaker Plan Patient with unclear psychiatric history has reportedly been stable on Seroquel 100 mg. Seems somewhat expansive mildly pressured and anxious preoccupied over the past number of days with what appears to be delusional preoccupation that somehow her body is being affected by witchcraft. Medical workup has been negative unclear if patient has been taking Seroquel the past few nights does not appear she was getting her nocturnal O2 when she was at [facility]. Allergies noted to Risperdal may need to increase Seroquel as tolerated olanzapine p.r.n. has been ordered. Could consider more weight neutral alternatives if needs to be on medication increased more chronically such as Ursula Newton would not be appropriate given cardiac issues check labs in EKG see chest CTA and chest x-ray from [facility] patient admitted on section 12 B Clarify diagnostic and medical issues Restart nocturnal oxygen Lidocaine started Hospitalist consult Monitor blood pressure if increase Seroquel Patient has walker Social work for coordination of care discharge planning family contact education Low-dose lorazepam for questionable panic attacks 03/24: no changes 03/25/2024: Increase Seroquel to 200 mg at bedtime Reason for continued inpatient stay Substantial Risk for: inability to function Time Spent With Patient Time: Total time managing care of this patient today ____ minutes.
[2024-03-25 08:26] VITALS: BP 133/61
[2024-03-25] MEDS: Aspirin 81 MG TAB.CHEW PO (08:26)
[2024-03-25] MEDS: lisinopriL 2.5 MG TABLET PO (08:26)
[2024-03-25] MEDS: Gabapentin 600 MG TABLET PO ×3 (08:26→22:08)
[2024-03-25] MEDS: metFORMIN HCl 1,000 MG TABLET 1000 MG PO ×2 (08:27→16:00)
[2024-03-25] MEDS: Atorvastatin Calcium 40 MG TABLET PO (08:27)
[2024-03-25 08:43] LABS: Glucose, Whole Blood 152 mg/dL (60-115)
[2024-03-25] MEDS: Insulin Lispro 100 UNIT/ML 3 ML VIAL SUBCUT ×4 (09:14→22:07)
[2024-03-25] MEDS: Lidocaine 4 % Patch ADH..PATCH 1 PATCH TRANSDERMA (11:04)
[2024-03-25 12:33] LABS: Glucose, Whole Blood 196 mg/dL (60-115)
[2024-03-25 17:44] LABS: Glucose, Whole Blood 226 mg/dL (60-115)
[2024-03-25 19:45] VITALS: BP 130/55; PULSE 97; TEMP 36.4; O2SAT 99
[2024-03-25 21:51] LABS: Glucose, Whole Blood 194 mg/dL (60-115)
[2024-03-25] MEDS: Insulin Glargine,Hum.rec.anlog 100 UNIT/ML 10 ML VIAL 40 UNIT SUBCUT (22:07)
[2024-03-25] MEDS: QUEtiapine Fumarate 200 MG TABLET PO (22:08)
[2024-03-25] MEDS: traZODone HCL 50 MG TABLET PO ×2 (22:15→23:22)
[2024-03-25] MEDS: Milk of Magnesia 30 ML ORAL.SUSP PO (22:20)
[2024-03-26 04:30] VITALS: O2SAT 100
[2024-03-26 06:30] VITALS: O2SAT 99
[2024-03-26] MEDS: Levothyroxine Sodium 50 MCG TABLET PO (06:46)
[2024-03-26 07:15] VITALS: BP 133/67; PULSE 94; RESP 16; TEMP 36.2; O2SAT 96
[2024-03-26 08:28] VITALS: BP 120/60
[2024-03-26] MEDS: lisinopriL 2.5 MG TABLET PO (08:28)
[2024-03-26] MEDS: Gabapentin 600 MG TABLET PO ×3 (08:31→21:30)
[2024-03-26] MEDS: metFORMIN HCl 1,000 MG TABLET 1000 MG PO ×2 (08:31→17:14)
[2024-03-26] MEDS: Atorvastatin Calcium 40 MG TABLET PO (08:31)
[2024-03-26] MEDS: Aspirin 81 MG TAB.CHEW PO (08:31)
[2024-03-26 08:35] LABS: Glucose, Whole Blood 146 mg/dL (60-115)
[2024-03-26 12:35] LABS: Glucose, Whole Blood 227 mg/dL (60-115)
[2024-03-26] MEDS: Insulin Lispro 100 UNIT/ML 3 ML VIAL SUBCUT ×3 (12:35→21:28)
[2024-03-26 17:45] LABS: Glucose, Whole Blood 245 mg/dL (60-115)
[2024-03-26 21:19] LABS: Glucose, Whole Blood 233 mg/dL (60-115)
[2024-03-26] MEDS: Acetaminophen 325 MG TABLET 650 MG PO (21:29)
[2024-03-26] MEDS: QUEtiapine Fumarate 200 MG TABLET PO (21:29)
[2024-03-26] MEDS: Insulin Glargine,Hum.rec.anlog 100 UNIT/ML 10 ML VIAL 40 UNIT SUBCUT (21:29)
[2024-03-26] MEDS: traZODone HCL 50 MG TABLET PO (21:35)
[2024-03-26 21:42] VITALS: BP 125/56; PULSE 96; RESP 18; TEMP 36.2; O2SAT 100
--- NOTE | 2024-03-26 22:02 | P.PNPSI_ITS ---
Subjective Subjective Date of Service: 03/26/24 Reason For Visit: Unspecified Depressive Disorder, Uns Schizophrenia Interim History: Pt with some odd physical sensations at times feels may be withcraft but much less preoccupied no si significantly less anxiety. Patient does not wish to sign in states she feels she can manage this at home Seroquel had been increased to 100 mg at bedtime patient appears to be tolerating and seems less anxious. She has been on overnight oxygen which she does at home 2 L Medication Compliance: Yes Mental Status Exam Mental Status Exam Narrative: Mental Status Exam Narrative: Seen with aid of an handling tech Appearance: Wearing hospital garb Behavior: Cooperative psychomotor:nl Speech somewhat pressured: Thought proccess somewhat racing circumstantial Thought content: less focused on bodily concerns no sig distress Mood: Described as good Affect mildly expansive somewhat anxious and apprehensive: SI:denies HI:denies VH/AH:none Delusions: Witchcraft Insight/judgment: Impaired Memory/cog: Grossly wnl Diagnostics Vital Signs (24Hr): Vital Signs - 24 hr 03/26/24 04:30 03/26/24 06:30 03/26/24 07:15 Temperature 97.2 F Pulse Rate 94 Respiratory Rate 16 Blood Pressure 133/67 Pulse Oximetry 100 99 96 Oxygen Delivery Method Nasal Cannula Nasal Cannula Room Air Oxygen Flow Rate 2 2 03/26/24 08:28 03/26/24 21:42 Temperature 97.2 F Pulse Rate 96 Respiratory Rate 18 Blood Pressure 120/60 125/56 L Pulse Oximetry 100 Oxygen Delivery Method Room Air Oxygen Flow Rate BMI result Body Mass Index 32.3 Labs 03/27/24 08:29 03/27/24 08:29 Labs: Laboratory Results - last 48 hr 03/25/24 03/25/24 03/25/24 08:38 12:20 17:32 POC Glucose 152 H 196 H 226 H 03/25/24 03/26/24 03/26/24 21:43 08:26 12:31 POC Glucose 194 H 146 H 227 H 03/26/24 03/26/24 17:36 21:13 POC Glucose 245 H 233 H Medications Medications Current Medications Acetaminophen (Acetaminophen 325 Mg Tablet) 650 mg PO Q6H PRN PRN Reason: Headache/Pain Mild Scale (1-3) Last Admin: 03/26/24 21:29 Dose: 650 mg Al Hydroxide/Mg Hydroxide (Magnesium Hydrox/Alum Hydrox 30 Ml Oral.Susp) 30 ml PO Q6H PRN PRN Reason: Heartburn/Nausea Aspirin (Aspirin 81 Mg Tab.Chew) 81 mg PO DAILY [facility] Last Admin: 03/26/24 08:31 Dose: 81 mg Atorvastatin Calcium (Atorvastatin Calcium 40 Mg Tablet) 40 mg PO DAILY [facility] Last Admin: 03/26/24 08:31 Dose: 40 mg Gabapentin (Gabapentin 600 Mg Tablet) 600 mg PO TID [facility] Last Admin: 03/26/24 21:30 Dose: 600 mg Glucose (Glucose Gel 15 Gm Gel..Gram.) 15 gm PO Q15M PRN PRN Reason: per Hypoglycemia Standing Ord. Hydroxyzine HCl (Hydroxyzine Hcl 25 Mg Tablet) 25 mg PO Q6H PRN PRN Reason: Anxiety Insulin Glargine (Insulin Glargine,Hum.Rec.Anlog 100 Unit/Ml 10 Ml Vial) 40 unit SUBCUT BEDTIME [facility] Last Admin: 03/26/24 21:29 Dose: 40 unit Insulin Human Lispro (Insulin Lispro 100 Unit/Ml 3 Ml Vial) 0 unit SUBCUT QIDACHS [facility]; Protocol Last Admin: 03/26/24 21:28 Dose: 4 unit Levothyroxine Sodium (Levothyroxine Sodium 50 Mcg Tablet) 50 mcg PO DAILY@0600 [facility] Last Admin: 03/26/24 06:46 Dose: 50 mcg Lidocaine (Lidocaine 4 % Patch Adh..Patch) 1 patch TRANSDERMA DAILY [facility]; Protocol Last Admin: 03/26/24 10:42 Dose: Not Given Lisinopril (Lisinopril 2.5 Mg Tablet) 2.5 mg PO DAILY [facility]; Protocol Last Admin: 03/26/24 08:28 Dose: 2.5 mg Lorazepam (Lorazepam 0.5 Mg Tablet) 0.5 mg PO Q8H PRN PRN Reason: panic attack Last Admin: 03/23/24 23:11 Dose: 0.5 mg Magnesium Hydroxide (Milk Of Magnesia 30 Ml Oral.Susp) 30 ml PO DAILY PRN PRN Reason: Constipation Last Admin: 03/25/24 22:20 Dose: 30 ml Metformin HCl (Metformin Hcl 1,000 Mg Tablet) 1,000 mg PO BIDWM [facility] Last Admin: 03/26/24 17:14 Dose: 1,000 mg Nicotine Polacrilex (Nicotine Polacrilex 2 Mg Gum) 2 mg BUCCAL Q2H PRN PRN Reason: Nicotine Cravings Olanzapine (Olanzapine 5 Mg Tablet) 5 mg PO Q6H PRN PRN Reason: agitation Quetiapine Fumarate (Quetiapine Fumarate 200 Mg Tablet) 200 mg PO BEDTIME [facility] Last Admin: 03/26/24 21:29 Dose: 200 mg Trazodone HCl (Trazodone Hcl 50 Mg Tablet) 50 mg PO BEDTIME MRX1 PRN PRN Reason: Insomnia Last Admin: 03/26/24 21:35 Dose: 50 mg Allergies Allergies Allergy/AdvReac Type Severity Reaction Status Date / Time risperidone Allergy Unknown Verified 03/23/24 03:56 Assessment & Plan Assessment & Plan (1) Schizoaffective disorder: Status: Acute Code(s): F25.9 - Schizoaffective disorder, unspecified (2) Sacroiliac joint dysfunction of both sides: Status: Acute Code(s): M53.3 - Sacrococcygeal disorders, not elsewhere classified (3) Spondylosis of lumbar region without myelopathy or radiculopathy: Status: Acute Code(s): M47.816 - Spondylosis without myelopathy or radiculopathy, lumbar region (4) Type 2 diabetes mellitus with unspecified complications: Status: Acute Code(s): E11.8 - Type 2 diabetes mellitus with unspecified complications (5) Nocturnal hypoxia: Status: Acute Code(s): G47.34 - Idiopathic sleep related nonobstructive alveolar hypoventilation (6) Chronic heart failure with preserved ejection fraction: Status: Acute Code(s): I50.32 - Chronic diastolic (congestive) heart failure (7) Bifascicular bundle branch block: Status: Acute Code(s): I45.2 - Bifascicular block (8) Status post cardiac pacemaker procedure: Status: Acute Code(s): Z95.0 - Presence of cardiac pacemaker Plan Patient with unclear psychiatric history has reportedly been stable on Seroquel 100 mg. Seems somewhat expansive mildly pressured and anxious preoccupied over the past number of days with what appears to be delusional preoccupation that somehow her body is being affected by witchcraft. Medical workup has been negative unclear if patient has been taking Seroquel the past few nights does not appear she was getting her nocturnal O2 when she was at [facility]. Allergies noted to Risperdal may need to increase Seroquel as tolerated olanzapine p.r.n. has been ordered. Could consider more weight neutral alternatives if needs to be on medication increased more chronically such as Ursula Newton would not be appropriate given cardiac issues check labs in EKG see chest CTA and chest x-ray from [facility] patient admitted on section 12 B Clarify diagnostic and medical issues Restart nocturnal oxygen Lidocaine started Hospitalist consult Monitor blood pressure if increase Seroquel Patient has walker [employer] work for coordination of care discharge planning family contact education Low-dose lorazepam for questionable panic attacks 03/24: no changes 03/25/2024: Increase Seroquel to 200 mg at bedtime 03/26/24 Pt seems less agitated and preoccupied no gross medical changes noted to acct for symptoms tolerating 200 seroquel does not seem to meet commitment criteria will most likely discharge tomorrow Patient educated on: diagnosis, medication risk/benefits and medical condition Informed Consent: further education needed Reason for continued inpatient stay Substantial Risk for: rapid decompensation Time Spent With Patient Time: Total time managing care of this patient today ____ minutes.
[2024-03-27] MEDS: Levothyroxine Sodium 50 MCG TABLET PO (06:31)
[2024-03-27 08:15] VITALS: BP 128/60; PULSE 91; RESP 16; TEMP 36.4; O2SAT 96
[2024-03-27 08:35] LABS: MANUAL DIFF FLAG NO
[2024-03-27 08:37] LABS: Basophils Percent Auto 0.4 % (0-2); Eosinophils Absolute Auto 0.3 X10*3/uL (0.0-0.4); Eosinophils Percent Auto 3.7 % (0-4); Hematocrit 33.9 % (37.0-47.0); Hemoglobin 10.7 g/dl (12.0-16.0); Imm Gran Abs Auto 0.02 X10*3/uL (0.00-0.03); Imm Gran Pct Auto 0.3 % (0.0-0.4); Lymphocytes Absolute Auto 2.2 X10*3/uL (1.2-4.9); Lymphocytes Percent Auto 28.1 % (20-40); Mean Corpuscular HGB Conc 31.6 g/dl (31.0-35.0); Mean Corpuscular Hemoglobin 28.6 pg (27.0-33.0); Mean Corpuscular Volume 90.6 fL (80.0-98.0); Mean Platelet Volume 11.1 fL (9.4-12.3); Monocytes Absolute Auto 0.6 X10*3/uL (0.1-1.2); Monocytes Percent Auto 7.8 % (2-11); Neutrophils Absolute Auto 4.7 x10*3/uL (2.0-8.3); Neutrophils Percent Auto 59.7 % (45-73); Platelet Count 168 X10*3/uL (160-400); Red Blood Count 3.74 X10*6/uL (4.20-5.50); Red Cell Distribution Width 13.4 % (11.0-16.0); White Blood Count 7.8 X10*3/uL (4.8-10.8)
[2024-03-27] MEDS: lisinopriL 2.5 MG TABLET PO (08:37)
[2024-03-27] MEDS: Gabapentin 600 MG TABLET PO ×2 (08:37→14:47)
[2024-03-27] MEDS: metFORMIN HCl 1,000 MG TABLET 1000 MG PO (08:37)
[2024-03-27] MEDS: Atorvastatin Calcium 40 MG TABLET PO (08:37)
[2024-03-27] MEDS: Lidocaine 4 % Patch ADH..PATCH 1 PATCH TRANSDERMA (08:38)
[2024-03-27] MEDS: Aspirin 81 MG TAB.CHEW PO (08:38)
[2024-03-27 08:39] LABS: Glucose, Whole Blood 131 mg/dL (60-115)
[2024-03-27 08:51] LABS: Alanine Aminotransferase 40 U/L (0-31); Albumin Level 3.5 g/dL (3.5-5.0); Alkaline Phosphatase 69 U/L (39-117); Anion Gap 12 (12-20); Aspartate Amino Transferase 15 U/L (5-31); Bilirubin Total 0.2 mg/dL (0.0-1.0); Blood Urea Nitrogen 17 mg/dL (9-16); Calcium 9.8 mg/dL (8.4-10.2); Carbon Dioxide 31 mmol/L (22-29); Chloride 108 mmol/L (96-108); Creatinine Clr Calc Pharmacy 90.7; Estimated Glomerular Filt Rate > 60; Glucose Random 132 mg/dL (60-115); Sodium 147 mmol/L (135-145); Total Protein 6.5 g/dL (6.5-8.0)
[2024-03-27 12:45] LABS: Glucose, Whole Blood 294 mg/dL (60-115)
[2024-03-27] MEDS: Insulin Lispro 100 UNIT/ML 3 ML VIAL SUBCUT (12:50)
--- NOTE | 2024-03-27 15:44 | PM.PSYDC ---
DS: Providers Provider Date of Service: 03/27/24 Date of admission: 03/22/24 19:58 Date of discharge: 03/27/24 Primary care physician: SHAMA Candelaria Admitting clinician: Oswald Cavanaugh Attending physician on admission: Oswald Cavanaugh Consults: 03/22/24 20:45 Consult to Hospitalist Routine Comment: Consulting Provider: Hospitalist Reason For Exam: medical H&P hx av block nocturnal hypoxia Attending physician on discharge: Oswald Cavanaugh Discharging clinician: Oswald Cavanaugh DS: Diagnosis Discharge Diagnosis (1) Schizoaffective disorder: Status: Acute (2) Sacroiliac joint dysfunction of both sides: Status: Acute (3) Spondylosis of lumbar region without myelopathy or radiculopathy: Status: Acute (4) Type 2 diabetes mellitus with unspecified complications: Status: Acute (5) Nocturnal hypoxia: Status: Acute (6) Chronic heart failure with preserved ejection fraction: Status: Acute (7) Bifascicular bundle branch block: Status: Acute (8) Status post cardiac pacemaker procedure: Status: Acute DS: Medications Discharge Medications Home Medications: Home Medications ?Medication ?Instructions ?Recorded ?Confirmed blood sugar diagnostic (FreeStyle #10 ea 02/10/22 02/20/24 Lite Strips) dulaglutide 0.75 mg/0.5 mL 0.75 mg subcut QWEEK 02/10/22 02/20/24 subcutaneous pen injector (Trulicity) insulin lispro 100 unit/mL subcut 02/10/22 02/20/24 subcutaneous solution lancets 30 gauge (Pure Comfort #100 ea 02/10/22 02/20/24 Safety Lancets) lorazepam 1 mg tablet (Ativan) 1 mg PO BID PRN 03/03/22 02/20/24 aspirin 81 mg chewable tablet 1 tab PO DAILY 10/06/22 02/20/24 atorvastatin 40 mg tablet 40 mg PO BEDTIME 10/06/22 02/20/24 cholecalciferol (vitamin D3) 25 25 mcg PO DAILY 10/06/22 02/20/24 mcg (1,000 unit) tablet levothyroxine 50 mcg tablet 50 mcg PO DAILY 10/06/22 02/20/24 lisinopril 2.5 mg tablet 2.5 mg PO DAILY 10/06/22 02/20/24 metformin 500 mg tablet,extended 1,000 mg PO BID 10/06/22 02/20/24 release 24 hr pantoprazole 20 mg tablet,delayed 20 mg PO DAILY 10/06/22 02/20/24 release sennosides 8.6 mg-docusate sodium 1 tab PO BID constipation 10/06/22 02/20/24 50 mg tablet (Senna Plus) Previous Rx's ?Medication ?Instructions ?Recorded gabapentin 600 mg tablet 600 mg PO TID 30 days #90 tabs 03/27/24 insulin glargine 100 unit/mL (3 40 unit (0.4 mL) subcut BEDTIME 03/27/24 mL) subcutaneous pen (Lantus #15 mL Solostar U-100 Insulin) insulin lispro 100 unit/mL 1 sliding scale dose subcut 03/27/24 subcutaneous pen (Humalog KwikPen QIDACHS #15 mL (U-100) Insulin) quetiapine 200 mg tablet 200 mg PO BEDTIME 30 days #30 tabs 03/27/24 Mental Status Exam Mental Status Exam Narrative: Mental Status Exam Narrative: Seen with aid of an professor of biochemistry Appearance: Wearing hospital garb Behavior: Cooperative psychomotor:nl Speech somewhat pressured: Thought proccess somewhat racing circumstantial Thought content: less focused on bodily concerns no sig distress no SI no HI future oriented Mood: Described as good Affect mildly expansive pleasant SI:denies HI:denies VH/AH:none Delusions: Witchcraft Insight/judgment: Impaired Memory/cog: Grossly wnl some disorganization Data Data Completed and Pending Completed studies during hospitalization [Text1]: haydee: Ysabel Frederick Age/Sex: 63/F : 1960 Unit#: [id number] Attend Dr: Oswald Cavanaugh MD Re03/22/24 Status: DIS IN Location: [place] [address] [id number] Disch: 03/27/24 SPEC : [id number] SALVADOR: 03/27/24 STATUS: COMP REQ : [id number] RECD: 03/27/[address]: Oswald Cavanaugh MD COMP: 03/27/24 ENTERED: 03/27/24 OTHR GAMA: MICHELLE KENDRICK ORDERED: CMP Test Result Flag Reference Sodium 147 H 135-145 mmol/L Potassium 4.0 3.3-5.1 mmol/L CL 108 96-108 mmol/L CO2 31 H 22-29 mmol/L Gap 12 12-20 BUN 17 H 9-16 mg/dL Creat 0.72 0.5-1.4 mg/dL Estimated CrCl 90.7 Provided height and weight: 167.64 cm, 90.71 kg. eGFR (calculated from the MDRD study equation) and eCrCl (calculated from the Cockcroft-Gault equation) are based on different parameters and may not yield comparable results. If eCrCl result is absurd, please check patient's height/weight. EGFR > 60 NOTE: For -Brazilian individuals, multiply the result by 1.210. Chronic Kidney Disease: Estimated GFR < 60 mL/min/1.73m2 Severe Kidney Disease: Estimated GFR < 15 mL/min/1.73m2 Glucose, Random 132 H 60-115 mg/dL CA 9.8 8.4-10.2 mg/dL Total Bili 0.2 0.0-1.0 mg/dL AST (GOT) 15 5-31 U/L ALT (GPT) 40 H 0-31 U/L Protein, Total 6.5 6.5-8.0 g/dL Alb 3.5 3.5-5.0 g/dL Alk Phos 69 39-117 U/L END OF REPORT 03/22/24 03/23/24 03/23/24 23:06 07:59 08:34 WBC RBC Hgb Hct MCV MCH MCHC RDW Plt Count MPV Immature Gran % (Auto) Neut % (Auto) Lymph % (Auto) Burnett % (Auto) Eos % (Auto) Baso % (Auto) Lymph # (Auto) Burnett # (Auto) Eos # (Auto) Baso # (Auto) Abs Immat Gran (auto) Absolute Neuts (auto) Absolute Nucleated RBC Nucleated RBC % (auto) Sodium Potassium Chloride Carbon Dioxide Anion Gap BUN Creatinine Estim Creat Clear Calc Estimated GFR POC Glucose 195 H 95 Random Glucose Fasting Glucose Estimat Average Glucose 154 Hemoglobin A1c % 7.0 H Calcium Magnesium Total Bilirubin AST ALT Alkaline Phosphatase Total Protein Albumin Triglycerides Cholesterol LDL Cholesterol, Calc HDL Cholesterol Vitamin B12 388 Folate 11.5 TSH 03/23/24 03/23/24 03/23/24 09:42 13:16 17:27 WBC RBC Hgb Hct MCV MCH MCHC RDW Plt Count MPV Immature Gran % (Auto) Neut % (Auto) Lymph % (Auto) Burnett % (Auto) Eos % (Auto) Baso % (Auto) Lymph # (Auto) Burnett # (Auto) Eos # (Auto) Baso # (Auto) Abs Immat Gran (auto) Absolute Neuts (auto) Absolute Nucleated RBC Nucleated RBC % (auto) Sodium 147 H Potassium 3.9 Chloride 110 H Carbon Dioxide 28 Anion Gap 13 BUN 19 H Creatinine 0.85 Estim Creat Clear Calc 76.8 Estimated GFR > 60 POC Glucose 218 H 97 Random Glucose Fasting Glucose 201 H Estimat Average Glucose Hemoglobin A1c % Calcium 10.2 Magnesium 1.8 Total Bilirubin 0.3 AST 31 ALT 47 H Alkaline Phosphatase 66 Total Protein 7.3 Albumin 3.9 Triglycerides 150 H Cholesterol 130 LDL Cholesterol, Calc 61 HDL Cholesterol 39 L Vitamin B12 Folate TSH 2.54 03/23/24 03/24/24 03/24/24 20:26 09:05 12:35 WBC RBC Hgb Hct MCV MCH MCHC RDW Plt Count MPV Immature Gran % (Auto) Neut % (Auto) Lymph % (Auto) Burnett % (Auto) Eos % (Auto) Baso % (Auto) Lymph # (Auto) Burnett # (Auto) Eos # (Auto) Baso # (Auto) Abs Immat Gran (auto) Absolute Neuts (auto) Absolute Nucleated RBC Nucleated RBC % (auto) Sodium Potassium Chloride Carbon Dioxide Anion Gap BUN Creatinine Estim Creat Clear Calc Estimated GFR POC Glucose 207 H 114 160 H Random Glucose Fasting Glucose Estimat Average Glucose Hemoglobin A1c % Calcium Magnesium Total Bilirubin AST ALT Alkaline Phosphatase Total Protein Albumin Triglycerides Cholesterol LDL Cholesterol, Calc HDL Cholesterol Vitamin B12 Folate [facility] 03/24/24 03/24/24 03/25/24 17:50 20:52 08:38 WBC RBC Hgb Hct MCV MCH MCHC RDW Plt Count MPV Immature Gran % (Auto) Neut % (Auto) Lymph % (Auto) Burnett % (Auto) Eos % (Auto) Baso % (Auto) Lymph # (Auto) Burnett # (Auto) Eos # (Auto) Baso # (Auto) Abs Immat Gran (auto) Absolute Neuts (auto) Absolute Nucleated RBC Nucleated RBC % (auto) Sodium Potassium Chloride Carbon Dioxide Anion Gap BUN Creatinine Estim Creat Clear Calc Estimated GFR POC Glucose 168 H 150 H 152 H Random Glucose Fasting Glucose Estimat Average Glucose Hemoglobin A1c % Calcium Magnesium Total Bilirubin AST ALT Alkaline Phosphatase Total Protein Albumin Triglycerides Cholesterol LDL Cholesterol, Calc HDL Cholesterol Vitamin B12 Folate [facility] 03/25/24 03/25/24 03/25/24 12:20 17:32 21:43 WBC RBC Hgb Hct MCV MCH MCHC RDW Plt Count MPV Immature Gran % (Auto) Neut % (Auto) Lymph % (Auto) Burnett % (Auto) Eos % (Auto) Baso % (Auto) Lymph # (Auto) Burnett # (Auto) Eos # (Auto) Baso # (Auto) Abs Immat Gran (auto) Absolute Neuts (auto) Absolute Nucleated RBC Nucleated RBC % (auto) Sodium Potassium Chloride Carbon Dioxide Anion Gap BUN Creatinine Estim Creat Clear Calc Estimated GFR POC Glucose 196 H 226 H 194 H Random Glucose Fasting Glucose Estimat Average Glucose Hemoglobin A1c % Calcium Magnesium Total Bilirubin AST ALT Alkaline Phosphatase Total Protein Albumin Triglycerides Cholesterol LDL Cholesterol, Calc HDL Cholesterol Vitamin B12 Folate [facility] 03/26/24 03/26/24 03/26/24 08:26 12:31 17:36 WBC RBC Hgb Hct MCV MCH MCHC RDW Plt Count MPV Immature Gran % (Auto) Neut % (Auto) Lymph % (Auto) Burnett % (Auto) Eos % (Auto) Baso % (Auto) Lymph # (Auto) Burnett # (Auto) Eos # (Auto) Baso # (Auto) Abs Immat Gran (auto) Absolute Neuts (auto) Absolute Nucleated RBC Nucleated RBC % (auto) Sodium Potassium Chloride Carbon Dioxide Anion Gap BUN Creatinine Estim Creat Clear Calc Estimated GFR POC Glucose 146 H 227 H 245 H Random Glucose Fasting Glucose Estimat Average Glucose Hemoglobin A1c % Calcium Magnesium Total Bilirubin AST ALT Alkaline Phosphatase Total Protein Albumin Triglycerides Cholesterol LDL Cholesterol, Calc HDL Cholesterol Vitamin B12 Folate [facility] 03/26/24 03/27/24 03/27/24 21:13 08:29 08:31 WBC 7.8 RBC 3.74 L Hgb 10.7 L Hct 33.9 L MCV 90.6 MCH 28.6 MCHC 31.6 RDW 13.4 Plt Count 168 D MPV 11.1 Immature Gran % (Auto) 0.3 Neut % (Auto) 59.7 Lymph % (Auto) 28.1 Burnett % (Auto) 7.8 Eos % (Auto) 3.7 Baso % (Auto) 0.4 Lymph # (Auto) 2.2 Burnett # (Auto) 0.6 Eos # (Auto) 0.3 Baso # (Auto) 0.0 Abs Immat Gran (auto) 0.02 Absolute Neuts (auto) 4.7 Absolute Nucleated RBC 0.000 Nucleated RBC % (auto) 0.0 Sodium 147 H Potassium 4.0 Chloride 108 Carbon Dioxide 31 H Anion Gap 12 BUN 17 H Creatinine 0.72 Estim Creat Clear Calc 90.7 Estimated GFR > 60 POC Glucose 233 H 131 H Random Glucose 132 H Fasting Glucose Estimat Average Glucose Hemoglobin A1c % Calcium 9.8 Magnesium Total Bilirubin 0.2 AST 15 ALT 40 H Alkaline Phosphatase 69 Total Protein 6.5 Albumin 3.5 Triglycerides Cholesterol LDL Cholesterol, Calc HDL Cholesterol Vitamin B12 Folate TSH 03/27/24 12:39 WBC RBC Hgb Hct MCV MCH MCHC RDW Plt Count MPV Immature Gran % (Auto) Neut % (Auto) Lymph % (Auto) Burnett % (Auto) Eos % (Auto) Baso % (Auto) Lymph # (Auto) Burnett # (Auto) Eos # (Auto) Baso # (Auto) Abs Immat Gran (auto) Absolute Neuts (auto) Absolute Nucleated RBC Nucleated RBC % (auto) Sodium Potassium Chloride Carbon Dioxide Anion Gap BUN Creatinine Estim Creat Clear Calc Estimated GFR POC Glucose 294 H Random Glucose Fasting Glucose Estimat Average Glucose Hemoglobin A1c % Calcium Magnesium Total Bilirubin AST ALT Alkaline Phosphatase Total Protein Albumin Triglycerides Cholesterol LDL Cholesterol, Calc HDL Cholesterol Vitamin B12 Folate TSH DS: Summary Hospital Course Hospital Course: Psychiatry Admission Note (In) Signed Patient: Ysabel Frederick MR#: [id number] : 1960 Acct:[id number] Age/Sex: 63 / F Loc: [id number] [id number]: Oswald Cavanaugh MD cc: Oswald Cavanaugh MD~ HPI Date of Service: 03/23/24 Chief Complaint: Unspecified Depressive Disorder, Uns Schizophrenia Sources of Information: patient interviewed, chart reviewed and crisis/core team assessment reviewed Additional Sources of Information: Records from [facility] reviewed patient seen with the aid of an professor of biochemistry at approximately 13:00 HPI Subjective Notes: Section 12B Narrative: The patient is a 63-year-old female referred from the [facility] Emergency room after the patient had been sent on 2 occasions to the emergency room from [facility] secondary to the patient saying that she could not breathe and reportedly had hypoxic readings. Patient does have a history of nocturnal hypoxia has been seen by pulmonary at [facility] in the past and is supposed to be on nocturnal oxygen patient states she is on 2 L at home. The patient was fully evaluated in the emergency room and was noted to be without shortness breath her saturation remained in the mid 90s without supplemental O2. Labs were unremarkable any CT angiogram was performed which did not show evidence of pulmonary embolism The patient was originally admitted psychiatrically after reported evaluation at [facility] complaining of multiple physical sensations throbbing through her body and there was a thought that someone was practicing witchcraft on her and that she needed to go to [facility] because she would get religion care there. The patient initially felt that a man she would like might be doing this and later that perhaps a woman if his could be jealous. She does have in a CCS and CHD team. 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 She was having multiple physical sensations that she attributed to witchcraft and was fearful she could be killed Especially if she did not stay awake She does visiting nurse that comes 2 times day. She is also dealing with multiple medical problems including sacroiliitis spondylosis of the lumbar spine type 2 diabetes a few months ago she had an pacemaker procedure history of CHF bifascicular block hypoventilation syndrome and she has been dealing with chronic pain which has been quite disruptive to her. Patient states she has been fearful of sleep thinking that spell is going to make her take her hand and pull her heart out on her chest. Does not look like there has been any adjustment to her antipsychotic medication which is Seroquel 100 mg at bedtime. She does take gabapentin 600 t.i.d. for pain syndrome she is also on levothyroxine Past Psychiatric History: Past history of 1 suicide attempt in relationship to her passed psychotic episodes with auditory hallucinations she does have an a CCS team and CHD. [facility] History Hepatitis C Nocturnal hypoxia COVID-19 Gout Anemia Essential hypertension Type 2 diabetes mellitus with unspecified complications Nonimmune to hepatitis B virus Hypothyroidism Schizophrenia Chronic heart failure with preserved ejection fraction Hypoventilation associated with obesity AMMY (obstructive sleep apnea) Morbid obesity Surgical History Status post cardiac pacemaker procedure History of adjustable gastric banding Family History: denies psych hx Social History: Patient lives with her son history of chronic mental illness Diagnostics Vital Signs (24Hr): Vital Signs - 24 hr 03/23/24 08:00 Temperature 97.6 F Pulse Rate 74 Respiratory Rate 16 Blood Pressure 112/60 Pulse Oximetry 100 Oxygen Delivery Method Room Air BMI result Body Mass Index 32.3 Labs 03/23/24 09:42 document embedded image Labs: Laboratory Results - last 48 hr 03/22/24 03/23/24 03/23/24 23:06 07:59 08:34 Sodium Potassium Chloride Carbon Dioxide Anion Gap BUN Creatinine Estim Creat Clear Calc Estimated GFR POC Glucose 195 H 95 Fasting Glucose Estimat Average Glucose 154 Hemoglobin A1c % 7.0 H Calcium Magnesium Total Bilirubin AST ALT Alkaline Phosphatase Total Protein Albumin Triglycerides Cholesterol LDL Cholesterol, Calc HDL Cholesterol Vitamin B12 388 Folate 11.5 TSH 03/23/24 03/23/24 09:42 13:16 Sodium 147 H Potassium 3.9 Chloride 110 H Carbon Dioxide 28 Anion Gap 13 BUN 19 H Creatinine 0.85 Estim Creat Clear Calc 76.8 Estimated GFR > 60 POC Glucose 218 H Fasting Glucose 201 H Estimat Average Glucose Hemoglobin A1c % Calcium 10.2 Magnesium 1.8 Total Bilirubin 0.3 AST 31 ALT 47 H Alkaline Phosphatase 66 Total Protein 7.3 Albumin 3.9 Triglycerides 150 H Cholesterol 130 LDL Cholesterol, Calc 61 HDL Cholesterol 39 L Vitamin B12 Folate TSH 2.54 Meds/Allergies Meds Home Medications Medication Instructions Recorded Confirmed Type blood sugar diagnostic (Alfonzo #10 ea 02/10/22 02/20/24 History Lite Strips) dulaglutide 0.75 mg/0.5 mL 0.75 mg subcut QWEEK 02/10/22 02/20/24 History subcutaneous pen injector (Trulicity) insulin glargine 100 unit/mL (3 unit subcut 02/10/22 02/20/24 History mL) subcutaneous pen (Lantus Solostar U-100 Insulin) insulin lispro 100 unit/mL subcut 02/10/22 02/20/24 History subcutaneous pen (Humalog KwikPen (U-100) Insulin) insulin lispro 100 unit/mL subcut 02/10/22 02/20/24 History subcutaneous solution lancets 30 gauge (Pure Comfort #100 ea 02/10/22 02/20/24 History Safety Lancets) doxepin 10 mg capsule 10 mg PO DAILY 03/03/22 02/20/24 History haloperidol decanoate 50 mg/mL 50 mg IM Q4W 03/03/22 02/20/24 History intramuscular solution (Haldol Decanoate) hydroxyzine HCl 50 mg/mL mg IM 03/03/22 02/20/24 History intramuscular syringe lorazepam 1 mg tablet (Ativan) 1 mg PO BID PRN 03/03/22 02/20/24 History quetiapine 100 mg tablet (Seroquel) 100 mg PO DAILY 03/03/22 02/20/24 History aspirin 81 mg chewable tablet 1 tab PO DAILY 10/06/22 02/20/24 History atorvastatin 40 mg tablet 40 mg PO BEDTIME 10/06/22 02/20/24 History cholecalciferol (vitamin D3) 25 25 mcg PO DAILY 10/06/22 02/20/24 History mcg (1,000 unit) tablet levothyroxine 50 mcg tablet 50 mcg PO DAILY 10/06/22 02/20/24 History lisinopril 2.5 mg tablet 2.5 mg PO DAILY 10/06/22 02/20/24 History metformin 500 mg tablet,extended 1,000 mg PO BID 10/06/22 02/20/24 History release 24 hr pantoprazole 20 mg tablet,delayed 20 mg PO DAILY 10/06/22 02/20/24 History release sennosides 8.6 mg-docusate sodium 1 tab PO BID constipation 10/06/22 02/20/24 History 50 mg tablet (Senna Plus) Allergies Allergies Allergy/AdvReac Type Severity Reaction Status Date / Time risperidone Allergy Unknown Verified 03/23/24 03:56 Mental Status Exam Mental Status Exam Narrative: Mental Status Exam Narrative: Seen with aid of an professor of biochemistry Appearance: Wearing hospital garb Behavior: Cooperative psychomotor: Speech somewhat pressured: Thought proccess somewhat racing circumstantial Thought content: Focused on different bodily sensations being controlled by witchcraft fearful to fall asleep that she will be killed Mood: Described as good Affect mildly expansive somewhat anxious and apprehensive: SI:denies HI:denies VH/AH:none Delusions: Insight/judgment: Impaired Memory/cog: Knows year month place home address president uncertain regarding medication Assessment & Plan Assessment & Plan (1) Schizoaffective disorder: Status: Acute Code(s): F25.9 - Schizoaffective disorder, unspecified (2) Sacroiliac joint dysfunction of both sides: Status: Acute Code(s): M53.3 - Sacrococcygeal disorders, not elsewhere classified (3) Spondylosis of lumbar region without myelopathy or radiculopathy: Status: Acute Code(s): M47.816 - Spondylosis without myelopathy or radiculopathy, lumbar region (4) Type 2 diabetes mellitus with unspecified complications: Status: Acute Code(s): E11.8 - Type 2 diabetes mellitus with unspecified complications (5) Nocturnal hypoxia: Status: Acute Code(s): G47.34 - Idiopathic sleep related nonobstructive alveolar hypoventilation (6) Chronic heart failure with preserved ejection fraction: Status: Acute Code(s): I50.32 - Chronic diastolic (congestive) heart failure (7) Bifascicular bundle branch block: Status: Acute Code(s): I45.2 - Bifascicular block (8) Status post cardiac pacemaker procedure: Status: Acute Code(s): Z95.0 - Presence of cardiac pacemaker Plan Patient with unclear psychiatric history has reportedly been stable on Seroquel 100 mg. Seems somewhat expansive mildly pressured and anxious preoccupied over the past number of days with what appears to be delusional preoccupation that somehow her body is being affected by witchcraft. Medical workup has been negative unclear if patient has been taking Seroquel the past few nights does not appear she was getting her nocturnal O2 when she was at [facility]. Allergies noted to Risperdal may need to increase Seroquel as tolerated olanzapine p.r.n. has been ordered. Could consider more weight neutral alternatives if needs to be on medication increased more chronically such as Ursula Caicedodon would not be appropriate given cardiac issues check labs in EKG see chest CTA and chest x-ray from [facility] Plan patient admitted on section 12 B Clarify diagnostic and medical issues Restart nocturnal oxygen Lidocaine started Hospitalist consult Monitor blood pressure if increase Seroquel Patient has walker Social work for coordination of care discharge planning family contact education Low-dose lorazepam for questionable panic attacks Dictated By: Oswald Cavanaugh MD Hospitalist Consult Note Signed Patient: Ysabel Frederick MR#: [id number] : 1960 Acct:[id number] Age/Sex: 63 / F Loc: [id number] 323-[address]: Oswald Cavanaugh MD cc: Radha Catherine~ History of Present Illness Data of Consult Service Date: 03/23/24 Primary Care Provider: SHAMA Candelaria HPI Reason for consult: Admission H&P Pt is a 63-year-old Malawian-speaking female with a PMH significant for HTN, HLD, HFpEF, complete AV block s/p pacemaker, obesity-related hypoventilation syndrome, AMMY, hypothyroidism, HLD, and schizoaffective disorder who is admitted to psychiatry. Patient initially presented to [facility] from [facility] for evaluation of hypoxia after they found her to be satting at 84% on RA. Initial workup at [facility] was negative and patient was noted to be satting at 100% on RA. Patient was discharged to [facility] who in turn sent her back to the ED the following evening after reporting her to be again hypoxic at 83% on RA. Patient was again 100% on RA in the ED. Ruthann Dinh requested CTA prior to accepting her back. CTA was done which was negative, however Ruthann Dinh refused to reexamine the patient. Medical consult for admission H&P. Patient begins by stating someone has put ?witchcraft? on her though she is unsure who it was. Reports various physical manifestations of this witchcraft, including feeling as if somebody is hitting her whole body with a hammer and breaking all of her bones; as if the bones of her arms and legs are being sawed in half; all the blood is draining out of the side of her thighs; someone is jumping up and down on her lower back; and a large electrical shock throughout her whole body. Currently pt is sitting comfortably and actively participating in interview and exam without restriction. It is unclear when or how often she experiences these symptoms, though most recent occurrence seems to have been when the pulse ox reader was placed on her finger at [facility]. Pt does state she is unsure whether her symptoms are ?all in my head or real . Denies chest pain/pressure, palpitations. No shortness a breath or difficulty breathing. Denies cough. No fever, chills, nausea, vomiting, abdominal pain. Patient reports a diagnosis of AMMY but is not on CPAP, though unclear why. Reports she uses 2L NC at night. Review of Systems Review of Systems: Negative except for that stated in the [facility] Medical History Hepatitis C Nocturnal hypoxia COVID-19 Gout Anemia Essential hypertension Type 2 diabetes mellitus with unspecified complications Nonimmune to hepatitis B virus Hypothyroidism Schizophrenia Chronic heart failure with preserved ejection fraction Hypoventilation associated with obesity AMMY (obstructive sleep apnea) Morbid obesity Family History Mother Diabetes Hypertension Father Hyperlipidemia Surgical History Status post cardiac pacemaker procedure History of adjustable gastric banding Social History Household Members: Children Household Members Other:: Son, 37 yo. Housing: House Do you presently have visiting nurse or other home services: Yes (Visiting RN 2x daily) Alcohol intake: never Patient Tobacco Use Status: Never used Tobacco Use of substances other than those prescribed or required for medical reasons: No Currently Displaying Signs/Symptoms of Drug Intoxication Withdrawal: No Yazidism Healthcare Practices: Taoism Advance Directives: No Advance Directives Information Provided: No Do you have thoughts of harming others: None Do you have a plan to hurt others: No Plan Recently lost weight without trying: Unsure How much weight loss: Not applicable Eating poorly because of decreased appetite: No Nutrition screen score: 2 Nutrition Risks: No Nutritional Risk Patient : No : No service: No Sexual orientation: Straight/Heterosexual Meds Allergies Allergy/AdvReac Type Severity Reaction Status Date / Time risperidone Allergy Unknown Verified 03/23/24 03:56 Active Medications: Current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
== END 2024-03-27 15:20 | disposition home health service (06) | DRG 750 ==
PROVIDERS: Social Worker; Admitting Provider Psychiatry & Neurology Psychiatry; PCP Physician Assistant; Visit Provider Psychiatry & Neurology Psychiatry
DX: F25.9 Schizoaffective disorder, unspecified (principal); I44.2 Atrioventricular block, complete; E11.8 Type 2 diabetes mellitus with unspecified complications; G47.34 Idiopathic sleep related nonobstructive alveolar hypoventilation; I50.32 Chronic diastolic (congestive) heart failure; I11.0 Hypertensive heart disease with heart failure; M53.3 Sacrococcygeal disorders, not elsewhere classified; M47.816 Spondylosis without myelopathy or radiculopathy, lumbar region; E03.9 Hypothyroidism, unspecified; Z23 Encounter for immunization; Z95.0 Presence of cardiac pacemaker; Z98.84 Bariatric surgery status; Z79.4 Long term (current) use of insulin; Z91.51 Personal history of suicidal behavior; Z79.84 Long term (current) use of oral hypoglycemic drugs; Z79.85 Long-term (current) use of injectable non-insulin antidiabetic drugs; Z79.82 Long term (current) use of aspirin; Z79.890 Hormone replacement therapy; Z79.899 Other long term (current) drug therapy
CPT/HCPCS: 36415; 80053; 80061; 82607; 82746; 82947; 83036; 83735; 84443; 85025; 90656; 93005

== ENCOUNTER → 2024-03-22 19:58 | Outpatient (BNV) | payer OTHER, SELFPAY | PROVIDERS: Admitting Provider Psychiatry & Neurology Psychiatry; PCP Physician Assistant; Visit Provider Psychiatry & Neurology Psychiatry | DX: F25.1 Schizoaffective disorder, depressive type (principal); M53.3 Sacrococcygeal disorders, not elsewhere classified; M47.816 Spondylosis without myelopathy or radiculopathy, lumbar region; E11.8 Type 2 diabetes mellitus with unspecified complications | CPT/HCPCS: 99232 ==

== ENCOUNTER → 2024-03-22 19:58 | Outpatient (BNV) | payer MEDICAID, SELFPAY | PROVIDERS: Admitting Provider Psychiatry & Neurology Psychiatry; PCP Physician Assistant; Visit Provider Student in an Organized Health Care Education/Training Program | DX: Z00.8 Encounter for other general examination (principal) | CPT/HCPCS: 99429 ==

== ENCOUNTER → 2024-03-22 19:58 | Outpatient (BNV) | payer OTHER, SELFPAY | PROVIDERS: Admitting Provider Psychiatry & Neurology Psychiatry; PCP Physician Assistant; Visit Provider Psychiatry & Neurology Psychiatry | DX: F25.1 Schizoaffective disorder, depressive type (principal); M53.3 Sacrococcygeal disorders, not elsewhere classified; M47.816 Spondylosis without myelopathy or radiculopathy, lumbar region | CPT/HCPCS: 90792; 99231; 99232 ==

== ENCOUNTER 2024-05-03 23:59 | Outpatient (BNV) | payer MEDICAID, SELFPAY | END 2024-05-25 23:59 | PROVIDERS: PCP Physician Assistant; Visit Provider Internal Medicine | DX: I50.30 Unspecified diastolic (congestive) heart failure (principal); I44.30 Unspecified atrioventricular block; Z95.0 Presence of cardiac pacemaker | CPT/HCPCS: 99223 ==

== ENCOUNTER → 2025-02-18 13:37 | Outpatient (REF) | payer MEDICAID, SELFPAY ==
--- NOTE | 2025-02-18 13:46 | HM_ITS ---
Conclusion: 1. Patient was monitored for total period of 1 day and 22 hours 2. Baseline was normal sinus rhythm with average heart rate of 101 beats per minute 3. No significant pauses noted 4. Frequent sinus tachycardia noted with 49% of the time heart rate about 100 beats per minute 5. Rare PVCs noted 6. No patient reported events MTDD
--- OUTSIDE RECORDS SUMMARY | 2025-02-18 13:51 | XMS_ITS | Encounter Summary ---
Author Organization [employer] Address [address] [facility] [address] [place] [address] Care Team Providers Care Tandem Mill Operator Name Role Phone Selin Carranza MD Primary Care Provider [phone] Reason for Referral * Imaging (Routine) - Closed Specialty Diagnoses / Procedures Referred By Contac t Referred To Contact Radiology Diagnoses Low back pain at multiple sites Procedures CT Lumbar Spine w/o Contrast Selin Carranza MD [address] [place] [address] Phone: tel: fax: [address] Phone: tel: fax: Referral ID Status Reason Start Date Expiration Date Visits Re quested Visits Authorized [id number] Closed 03/30/2023 03/29/2024 1 1 Encounter Details Date Type Department Care Team (Late st Contact Info) Description 03/30/2023 Orders Only [facility] [address] [place] [address] Selin Carranza MD [address] [place] [address] Low back pain at multiple sites (Primary Dx) Social History Tobacco Use Types Packs/Day Years Used Date Smoking Tobacco: Never Smokeless Tobacco: Never Alcohol Use Standard Drinks/Week Comments Never 0 (1 standard drink = 0.6 oz pur e alcohol) Depression Answer Date Recorded Patient Health Questionnaire-2 Score 0 12/06/2022 Comments Unknown Sex and Gender Information Value Date Recorded Sex Assigned at Female 05/17/2022 10:14 AM EDT Legal Sex Female 10:14 AM EDT Gender Identity Female 05/17/2022 10:14 AM EDT Sexual Orientation Choose not to disclose 2021 10:14 AM EDT documented as of this encounter Plan of Treatment Scheduled Orders Name Type Priority Associated Diagnoses Orde r Schedule CT Lumbar Spine w/o Contrast Imaging Routine Low back pain at multiple sites Expected: 03/30/2023, Expires: 03/30/2024 documented as of this encounter Visit Diagnoses Diagnosis Low back pain at multiple sites- Primary documented in this encounter Care Teams Tandem Mill Operator Relationship Specialty Start Date End Date Selin Carranza MD [address] [place] [id number] PCP - General Family Medicine 08/05/20 Rafia Simpson Manganese Heater 06/08/23 09/08/23 documented as of this encounter
--- OUTSIDE RECORDS SUMMARY | 2025-02-18 13:51 | XMS_ITS | Encounter Summary ---
Author Organization [facility] Address [address] [place] [address] Care Team Providers Care No Bake Molder Name Role Phone Yasemin Quijano MD Primary Care Provider [phone] Encounter Details Date Type Department Care Team (Late st Contact Info) Description 09/21/2024 Lab Requisition [facility] [address] [place] [address] Filipe Manley MD [address] [place] [phone] Anemia, unspecified; Schizoaffective disorder, unspecified (CMS/HCC V24, CMS/HCC V28) Social History Tobacco Use Types Packs/Day Years Used Date Smoking Tobacco: Never Assessed Comments Unknown Sex and Gender Information Value Date Recorded Sex Assigned at Not on file Legal Sex Female 8:30 AM EST Gender Identity Not on file Sexual Orientation Not on file documented as of this encounter Plan of Treatment Not on file documented as of this encounter Procedures Procedure Name Priority Date/Time Associated Diagnosis Comments COMPLETE BLOOD COUNT Routine 09/21/2024 5:08 AM EST Anemia, unspecified Schizoaffective disorder, unspecified (CMS/HCC) BASIC METABOLIC PANEL Routine 09/21/2024 5:08 AM EST Anemia, unspecified Schizoaffective disorder, unspecified (CMS/HCC) documented in this encounter Results * Basic metabolic panel (09/21/2024 5:08 AM EST) Sodium 143 133 - 145 mmol/L LAB CHEMISTRY METHOD 09/21/2024 10:17 AM EST [facility] Potassium 4.4 3.5 - 5.5 mmol/L LAB CHEMISTRY METHOD 09/21/2024 10:17 AM [facility] Chloride 107 96 - 110 mmol/L LAB CHEMISTRY METHOD 09/21/2024 10:17 AM [facility] CO2 32 21 - 32 mmol/L LAB CHEMISTRY METHOD 09/21/2024 10:17 AM [facility] Anion Gap 4 3 - 11 LAB CHEMISTRY METHOD 09/21/2024 10:17 AM [facility] Glucose 99 70 - 100 mg/dL LAB CHEMISTRY METHOD 09/21/2024 10:17 AM [facility] BUN 16 5 - 25 mg/dL LAB CHEMISTRY METHOD 09/21/2024 10:17 AM [facility] Creatinine 0.68 0.50 - 1.10 mg/dL LAB CHEMISTRY METHOD 09/21/2024 10:17 AM [facility] eGFR 98 >=60 mL/min/1. 73m2 LAB CHEMISTRY METHOD 09/21/2024 10:17 AM [facility] Comment:Calculation based on the Chronic Kidney Disease Epidemiology Collaboration (CKD-EPI) equation refit without adjustment for race. BUN/Creatinine Ratio 23.5 LAB CHEMISTRY METHOD 09/21/2024 10:17 AM [facility] Calcium 9.3 8.5 - 10.5 mg/dL LAB CHEMISTRY METHOD 09/21/2024 10:17 AM [facility] Blood Venous blood specimen / Unknown Venipuncture / Unknown 09/21/2024 5:08 AM EST 09/21/2024 9:13 AM EST us Filipe Manley MD LAB BLOOD ORDERABLES Final Resu lt [facility] [address] [place] [address], * (ABNORMAL) Complete blood count (09/21/2024 5:08 AM EST) [facility] WBC 6.3 4.8 - 10.8 K/mcL LAB HEMETOLOGY METHOD 09/21/2024 9:44 AM [facility] RBC 4.10 3.80 - 4.80 M/mcL LAB HEMETOLOGY METHOD 09/21/2024 9:44 AM [facility] Hemoglobin 11.6 11.5 - 16.0 g/dL LAB HEMETOLOGY METHOD 09/21/2024 9:44 AM [facility] Hematocrit 37.7 35.0 - 47.0 % LAB HEMETOLOGY METHOD 09/21/2024 9:44 AM [facility] MCV 93.1 79.0 - 98.0 FL LAB HEMETOLOGY METHOD 09/21/2024 9:44 AM [facility] MCH 28.6 27.0 - 32.0 pcg LAB HEMETOLOGY METHOD 09/21/2024 9:44 AM [facility] MCHC 30.8(L) 32.0 - 37.0 g/dL LAB HEMETOLOGY METHOD 09/21/2024 9:44 AM [facility] RDW 14.1 11.0 - 15.0 % LAB HEMETOLOGY METHOD 09/21/2024 9:44 AM [facility] Platelets 212 130 - 400 K/mcL LAB HEMETOLOGY METHOD 09/21/2024 9:44 AM [facility] MPV 11.2(H) 7.0 - 11.0 FL LAB HEMETOLOGY METHOD 09/21/2024 9:44 AM [facility] NRBC 0.0 <1.0 % LAB HEMETOLOGY METHOD 09/21/2024 9:44 AM [facility] NRBC Absolute 0.00 <0.10 K/mcL LAB HEMETOLOGY METHOD 09/21/2024 9:44 AM EST [facility] Blood Venous blood specimen / Unknown Venipuncture / Unknown 09/21/2024 5:08 AM EST 09/21/2024 9:13 AM EST us Filipe Manley MD LAB BLOOD ORDERABLES Final Resu lt [facility] [address] [place] [address], documented in this encounter Visit Diagnoses Diagnosis Anemia, unspecified Schizoaffective disorder, unspecified (CMS/HCC V24, CMS/HCC V28) documented in this encounter Care Teams No Bake Molder Relationship Specialty Start Date End Date Yasemin Quijano MD [address] [place] [phone] PCP - General 11/10/23 documented as of this encounter
== END ==
LOC: HO.CARD 13:37
PROVIDERS: PCP Hospitalist
DX: I50.32 Chronic diastolic (congestive) heart failure (principal); I47.29 Other ventricular tachycardia; I44.2 Atrioventricular block, complete
CPT/HCPCS: 93242

== ENCOUNTER → 2025-02-18 13:46 | Outpatient (BNV) | payer MEDICAID, SELFPAY | PROVIDERS: PCP Hospitalist; Visit Provider Internal Medicine Cardiovascular Disease | DX: R00.0 Tachycardia, unspecified (principal); I49.3 Ventricular premature depolarization | CPT/HCPCS: 93244 ==